=== PATIENT | female | born 1935 | race Caucasian/White ===

== ENCOUNTER → 2024-02-18 09:41 | Outpatient (REF) | payer MEDICARE, SELFPAY | LOC: RAD 09:41 | PROVIDERS: ATTENDING PHYSICIAN Internal Medicine Endocrinology, Diabetes & Metabolism; FAMILY PHYSICIAN Student in an Organized Health Care Education/Training Program | DX: E05.90 Thyrotoxicosis, unspecified without thyrotoxic crisis or storm (principal); E04.1 Nontoxic single thyroid nodule | CPT/HCPCS: 76536 ==

== ENCOUNTER 2024-03-12 18:25 | Inpatient (IN) | payer MEDICARE, SELFPAY ==
[2024-03-12] VITALS (11 sets, daily range): BP systolic 100–169; BP diastolic 60–116; BMI 33.7; BMI 33.2
--- NOTE | 2024-03-12 16:22 | ED.GENMED ---
History of Present Illness
General
Chief Complaint: Heart Rate Problem
Source: patient and family
Exam Limitations: none
Time Seen by Provider: 03/12/24 16:03
Travel History
Have you had any contact with someone who has COVID-19?: No
Do you have any symptoms of coronavirus? Fever > 100 degrees, chills, cough, shortness of breath, sore throat, loss of taste or smell, muscle aches, or headache?: No
History of Present Illness
History of Present Illness:
See MDM
Past History
Past History
ED Past Medical History: Arrthythmia (Atrial fib), HTN, Hypercholesterolemia and Other (Hyperthryoidism)
ED Past Surgical History: None
Social History
Tobacco: Non-smoker
Alcohol: None
Personal:
Living: alone
Phy Exam
Physical Exam
Physical Exam:
See MDM
Course
Orders/Labs/Results
Orders:
Orders
03/12/24 15:24
ECG [Electrocardiogram (*1)] Urgent
Reason for Study: Atrial Fibrillation
EKG- Treatment ONCE
03/12/24 16:19
CMP [Comprehensive Metabolic Panel] Urgent
Complete Blood Count/With Diff Urgent
Free T4 Urgent
Pro-BNP [NT-proBNP] Urgent
TSH Reflex To Free T4 Urgent
03/12/24 16:21
Diltiazem HCl [Cardizem] 20 mg IV NOW STA
Diltiazem HCl [Cardizem] 24 mg IV NOW STA
03/12/24 16:24
CR Chest Portable - 1 View Urgent
Comment:
Reason For Exam: SOB, chest pain
Reason Study Needs to be Portable: Patient Unstable
03/12/24 16:25
Diltiazem 125 mg/125 ml Nss [Cardizem] 125 mg in 125 ml IV NOW
Initial dose in mg/hr, then titrate:: 5
Titrate to keep:: Heart rate 80-100 bpm
Titrate by mg/hr:: 5 mg/hr
Frequency of titrations (minutes):: 15
Maximum dose in mg/hr:: 15
03/12/24 17:22
Furosemide [Lasix] 40 mg IV NOW STA
03/12/24 17:24
Consult Cardiology [CARDIOLOGY CONSULT] Routine
Consulting Provider: Davion Suarez
Was physician already notified: Yes
Abnormal Lab Results
03/12/24
16:19
MCH 31.4 H pg
(27.0-31.0)
RDW 15.4 H %
(11.5-14.5)
MPV 12.2 H fL
(7.4-10.4)
Absolute Monos (auto) 0.9 H 10^3/uL
(0.1-0.6)
Lymphocytes % 16.2 L %
(20.5-51.1)
Monocytes % 10.6 H %
(1.7-9.3)
Glucose 116 H mg/dl
(70-99)
Calcium 10.4 H mg/dl
(8.4-10.2)
TSH (Reflex) 0.03 L uIU/ml
(0.47-4.68)
03/12/24 16:19
03/12/24 16:19
Vital Signs
Initial and Last Documented VS:
Initial Vital Signs
Temp Pulse Resp BP Pulse Ox
97.6 F 134 16 159/102 92
03/12/24 15:40 03/12/24 15:40 03/12/24 15:40 03/12/24 15:40 03/12/24 15:40
Last Documented Vital Signs
Temp Pulse Resp BP Pulse Ox
97.6 F 124 16 169/108 92
03/12/24 15:40 03/12/24 16:35 03/12/24 15:40 03/12/24 16:35 03/12/24 15:40
Procedures
IV Access
Indication: RN unable to obtain and Physician skill needed
Performed by:: Toy Zamora DO
Site:: R arm
Gauge:: 18
Ultrasound Guidance: Yes
MDM/Problems Addressed
Differential Diagnosis Includes:
HPI and MDM Narrative:
88-year-old female presenting with A-fib for the past 3 days. She has a history of paroxysmal A-fib. She has failed multiple medicines in the past. Amiodarone was her most recent medicine which seemed to help the most. However, family indicating
that this caused hyperthyroidism. She has since been off amiodarone and has been on beta-blockers alone. The carbon sequestration plant operator recently increased the methimazole from 5 mg to 10 mg. Patient states compliance with eliquis
Given the history of failed multiple medications, we discussed cardioversion versus Cardizem drip. Patient has been cardioverted before and 1 right back and A-fib. Patient and family are more interested in Cardizem drip and admission to discuss
alternative treatment therapy with cardiology
Physical exam
General: Well appearing and non-toxic
HEENT: protecting airway
Neck: appears supple
CV: No evidence of cyanosis. Tachycardic and irregular
Resp: No accessory muscle use. Mild crackles at bases
Abd: Non-distended
Extremities: +2 pitting edema from knees to ankles bilateral
Neuro: alert
Psych: Normal affect
Skin: Intact
Problems Addressed including Acute and Chronic Conditions affecting care:
1. A-fib with RVR
Acuity: acute
Prognosis: unstable
Details: Patient requiring IV Cardizem bolus and Cardizem drip
2. Shortness of breath
Acuity: acute
Prognosis: stable
Details: Likely in setting of A-fib. Given crackles at bases, will obtain chest x-ray
Updates
Patient remains in A-fib while on Cardizem drip. BNP elevated but chest x-ray clear. Will give dose of Lasix
Differential Diagnosis (but not limited to): CHF exacerbation, hypothyroidism, A-fib
Testing considered: Troponin
Drug therapy (if applicable): OTC meds, please see d/c instruction regarding Rx drugs
Amount and/or Complexity of Data Reviewed
Clinical info obtained from: Patient
External data reviewed: N/A
Labs I independently reviewed (but not limited to): Elevated BNP
Radiology: X-ray independently reviewed: Checks x-ray appears clear
Pulse Ox: not hypoxic
EKG independently reviewed: A-fib, normal axis, no STEMI
Featheredge Machine Operator: A-fib with RVR
Critical Care: C the high probability of a clinically significant, sudden or life threatening deterioration of the cardiovascular system(s) required my full and direct attention, intervention and personal management. The aggregate critical care time
was 33 minutes. This time is in addition to time spent performing reported procedures but includes the following:
[x] Data Review and interpretation
[x] Patient assessment and monitoring of vital signs
[x] Documentation
[x] Medication orders and management
Risk of Complication:
Social Determinants of health: Good social support
Discussed with other providers: Hospitalist, technical publications manager
Escalation of Care includes Admit/Obs: Given persistent A-fib with symptoms, will admit
Occasional wrong word or 'sound a like' substitutions may have occurred due to the inherent limitations of voice recognition software. Read the chart carefully and recognize, using context, where substitutions have occurred.
*Critical Care Note
Total Time (30-74mins, 75-104mins- exclusive of procedures): 33 min
ED Attending Note
-
Portions of this chart may have been created with voice recognition software.� Occasional wrong word or��sound alike� substitutions may have occurred due to the inherent limitations of voice recognition software.
Discharge Plan
Departure
Patient Disposition: Admit
Date of Disposition: 03/12/24
Time of Disposition: 17:35
Admit to: Telemetry
Presentation/result/management discussed w/ accepting MD/DO: Hospitalist
Discharge Problem:
A-fib
Prescriptions:
No Action
Eliquis 5 MG tablet
5 mg PO BID Qty: 60 6RF
ezetimibe 10 MG tablet
10 mg PO DAILY
metoprolol succinate 50 mg Tablet Extended Release 24 Hr
50 mg PO BID Qty: 60 0RF
losartan 50 mg Tablet
50 mg PO DAILY
furosemide 40 mg Tablet
40 mg PO BID
calcium polycarbophil [FiberCon] 625 mg Tablet
1,250 mg PO DAILY
ku-jup-JW-Mk-Vg-rufhxcs-lutein 0.4-162-18 mg Tablet
1 tab PO DAILY
amlodipine 5 mg Tablet
5 mg PO BID Qty: 60 0RF
Rx Instructions:
New medication for hypertension
acetaminophen 325 mg Tablet
650 mg PO Q4HPRN PRN (Reason: Mild Pain / Temp > 101) Qty: 1 0RF
dextromethorphan-guaifenesin 10-100 mg/5 mL Syrup
10 ml PO Q4HPRN PRN (Reason: cough) Qty: 1 0RF
Rx Instructions:
OTC
albuterol sulfate 90 mcg/actuation Hfa Aerosol Inhaler
2 puff inhalation R Q4HPRN PRN (Reason: SOB) Qty: 1 0RF
Referrals:
Gerda Garcia MD [Family Provider] -
Interventions
Interventions:
*Risk Screen - Suicide Last Done: 03/12/24 15:40
*General Assessment Last Done: 03/12/24 15:40
*ED COVID-19 Vaccine History Last Done: 03/12/24 15:40
Discharge Date and Time
Print Language: URDU
[2024-03-12] MEDS: CARDIZEM 20 MG IV (16:35)
[2024-03-12] MEDS: CARDIZEM 125 IV (16:36)
[2024-03-12 16:39] LABS: % Basophils 0.6 % (0-2); % Eosinophils 3.7 % (0-6); % Immature Granulocytes 0.2 % (0-0.5); % Lymphocytes 16.2 % (20.5-51.1); % Monocytes 10.6 % (1.7-9.3); % Neutrophils 68.7 % (42.2-75.2); Absolute Basophils 0.1 10^3/uL (0-0.2); Absolute Eosinophils 0.3 10^3/uL (0-0.7); Absolute Lymphocytes 1.3 10^3/uL (1.2-3.4); Absolute Monocytes 0.9 10^3/uL (0.1-0.6); Absolute Neutrophils 5.6 10^3/uL (1.4-6.5); Hematocrit 42.5 % (37.0-47.0); Hemoglobin 14.1 g/dL (12.0-16.0); Mean Corp Hgb Conc. 33.2 g/dL (33.0-37.0); Mean Corpuscular Hgb 31.4 pg (27.0-31.0); Mean Corpuscular Volume 94.7 fL (81.0-99.0); Mean Platelet Volume 12.2 fL (7.4-10.4); Nucleated Red Blood Cells % 0 %; Platelet Count 269 10^3/uL (130-400); Red Blood Cell Count 4.49 10^6/uL (4.20-5.40); Red Cell Dist. Width 15.4 % (11.5-14.5); White Blood Cell Count 8.2 10^3/uL (4.8-10.8)
[2024-03-12 16:52] LABS: ALT (SGPT) 16 U/L (0-35); AST (SGOT) 28 U/L (14-36); Albumin 4.1 g/dl (3.5-5.0); Alkaline Phosphatase 99 U/L (38-126); Blood Urea Nitrogen 13 mg/dl (7-17); Calcium 10.4 mg/dl (8.4-10.2); Carbon Dioxide 29 mmol/L (22-30); Chloride 101 mmol/L (98-107); Estimated Creatinine Clearance 59 ml/min; Glucose 116 mg/dl (70-99); Potassium 3.9 mmol/L (3.5-5.1); Sodium 140 mmol/L (135-145); Total Bilirubin 1.1 mg/dl (0.2-1.3); Total Protein 6.8 g/dl (6.3-8.2); eGFR > 60.00
[2024-03-12 16:57] LABS: NT-proBNP 3530 pg/ml
[2024-03-12 17:29] LABS: TSH Reflex To Free T4 0.03 uIU/ml (0.47-4.68)
[2024-03-12] MEDS: LASIX 40 MG IV (17:54)
[2024-03-12 17:57] LABS: Free T4 2.24 ng/dl (0.78-2.19)
--- NOTE | 2024-03-12 18:13 | HPS.HSE ---
Addendum entered and electronically signed by Augustus Schmid MD 03/13/24 08:11:
88-year-old female with a past medical history of paroxysmal atrial fibrillation on Eliquis, CHF on lasix, hyperthyroidism on methimazole, hypertension, and hyperlipidemia presents with shortness of breath and palpitations for 4 days. She was found
to have rapid atrial fibrillation despite being on metoprolol succinate 50 mg twice a day, and be in acute heart failure with a preserved ejection fraction. She received Cardizem IV bolus and is currently on a drip.
Will continue her Cardizem drip, titrate as needed. Start metoprolol tartrate 50 mg every 6 hours. Hold losartan so we have enough room to go up on her Cardizem drip and metoprolol if needed. Continue Eliquis for anticoagulation. Give Lasix 40
mg IV daily for heart failure, trend creatinine, trend daily weights. Consult cardiology.
I have personally seen and examined the patient 03/12/2024, and agree with the plan of care as documented by BELEN Daniels
Advance care planning discussed, patient is a DNR.
All other issues as outlined by the advanced care practitioner.
Original Note:
Family Physician
-
Family Physician: Gerda Garcia MD
Chief Complaint
-
Rapid heart rate, shortness breath, lightheadedness
History of Present Illness
88-year-old female from home where she lives alone in a senior apartment who states she felt her heart racing with some shortness of breath and lightheadedness today. She has history of A-fib is on Eliquis and beta-norma. Her son-in-law who is a
primary care provider brought her to the ER for evaluation. She has been working with endocrinology for hyperthyroidism history of hyperthyroidism worsened with prior amiodarone. She currently had methimazole increased to 5 mg twice daily. She
had recent admission November 2023 with cardioversion for A-fib. Per her son-in-law she has never chemically converted in the past. She denies current fever, chills, recent illness, chest pain, headache, shortness of breath, cough, abdominal pain,
nausea, vomiting, diarrhea, urinary symptoms. She has past medical history of hypertension, HLD, chronic CHF preserved EF, hypothyroidism, chronic ambulatory dysfunction uses walker.
Medical History
Past Medical History
Past Medical History: Reports Other
Additional Past Medical History:
Paroxysmal Atrial Fibrillation
Hypertension
Dyslipidemia
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
Chronic HFpEF
GERD
Hyperthyroidism
Obesity
Hx influenza A
Past Surgical History: Reports Other (Multiple cardioversions last 30 November 2023)
Social History
Tobacco: Non-smoker
Alcohol: None
Drug: None
Personal: Single
Living: Alone (care home apartment)
Family History
Family History: Other (Mother age 89 natural causes, father age 70 natural causes patient reports they never went to the physician)
Allergies / Home Medications
Allergies reflects when Allergies were last updated in [employer].
Home Medications with original date entered in [employer]
Allergy/Medication List:
Allergies
Allergy/AdvReac Type Severity Reaction Status Date / Time
No Known Allergies Allergy Verified 12/01/23 20:33
Home Medications
apixaban 5 mg tablet (Eliquis) 5 mg PO BID ##60 05/23/19
ezetimibe 10 mg tablet 10 mg PO DAILY High Cholesterol 12/12/21
metoprolol succinate 50 mg tablet,extended release 24 hr 50 mg PO BID #60 tabs 03/06/23
calcium polycarbophil 625 mg tablet (FiberCon) 1,250 mg PO DAILY Constipation 12/02/23
furosemide 40 mg tablet 40 mg PO BID Fluid Retention/Swelling 12/02/23
losartan 50 mg tablet 50 mg PO DAILY Blood Pressure 12/02/23
tijdvtdy-ppm-IW 0.4 mg-calcium 162 mg-iron 18 om-sgrutou-oszwdq tablet 1 tab PO DAILY Supplement 12/02/23
acetaminophen 325 mg tablet 650 mg (2 x 325 mg) PO Q4HPRN PRN Mild Pain / Temp > 101 #1 tab 12/07/23
dextromethorphan-guaifenesin 10 mg-100 mg/5 mL oral syrup 10 ml PO Q4HPRN PRN cough #1 mL 12/07/23
methimazole 5 mg PO BID 03/12/24
Review of Systems
-
History Source: Patient and Family (Patient's daughter and son-in-law Dr. Bill Johnson at bedside)
A 12 point ROS was completed and negative except as noted: Yes
Constitutional: Denies Fever, Weight Loss or Fatigue
EENT: Denies Sore Throat or Runny Nose
Respiratory: Denies Cough or Trouble Breathing
Cardiac: Reports Palpitations; Denies Chest Pain, Diaphoresis or Syncope
Abdomen/GI: Denies Abdominal Pain, Nausea, Vomiting, Diarrhea or Constipated
: Denies Dysuria, Frequency, Flank Pain, Incontinence or Difficulty Voiding
Musculoskeletal: Reports Edema (Chronic peripheral edema +2); Denies Joint Pain
Skin: Denies Itching or Rash
Neurological: Denies Dizzy, Headache or Weakness
Endocrine: Reports No Symptoms
Hematologic/Lymphatic: Reports No Symptoms
Psych: Reports Calm
Physical Exam
Vital Signs
Vital Signs
Temp Pulse Resp BP Pulse Ox
97.6 F 114 25 143/77 92
03/12/24 15:40 03/12/24 17:54 03/12/24 17:45 03/12/24 17:54 03/12/24 17:30
Physical Exam
General: Comfortable, Conversant and Obese; No Pain, Fever or Chills
HEENT: NormoCephalic, Anicteric and Moist mucous membranes
Respiratory: Clear; No Wheezes, Rales or Rhonchi
Cardiac: S1/S2, Irregular Rhythm (A-fib heart rate 123 bpm) and Peripheral Edema (Chronic +2 bilateral lower extremities); No Murmur, Rub or Gallop
Breast: Deferred by me
GI: Soft, Non Tender, Non Distended, Normal Bowel Sounds and No Hepatosplenomegaly
Rectal: Deferred by Provider
Genito-urinary: Deferred by me
Musculoskeletal: No Clubbing, No Cyanosis, Edema, Left Lower Extremity (Chronic +2) and Edema, Right Lower Extremity (Chronic +2); No Edema, Left Upper Extremity or Edema, Right Upper Extremity
Skin: Warm and Dry; No Rash
Neuro: AO x 3, No Motor Deficits, Nonfocal/grossly intact, Cranial Nerves Intact and No Sensory Deficits; No Slurred Speech, Facial Droop or Tremors
Psych: Calm
Laboratory Results
-
03/12/24 16:19
03/12/24 16:19
Laboratory Results
Total Bilirubin 1.1 mg/dl (0.2-1.3) 03/12/24 16:19
AST 28 U/L (14-36) 03/12/24 16:19
ALT 16 U/L (0-35) 03/12/24 16:19
Alkaline Phosphatase 99 U/L (38-126) 03/12/24 16:19
Data Reviewed
-
Lab Data: Labs Reviewed by me
Impression/Plan
-
Impression/plan:
Admit to IMU
#A-fib with RVR/paroxysmal A-fib
#-History of hyperthyroidism on amiodarone
-History of multiple cardioversions last 30 November 2023
-IV Cardizem drip
-Continue ENVIRONMENTAL SERVICES LEAD Eliquis
-Consult [facility] cardiology
-Change metoprolol to succinate to metoprolol tartrate 50 mg every 6 hours
-Hold losartan 50 mg daily
EKG: Rapid A-fib at 142 bpm, QTc 590 MS
CXR: No acute cardiopulmonary process
# Acute on chronic heart failure preserved EF
#Chronic peripheral edema
I/O, daily weight
=-IV Lasix 40 mg daily, ENVIRONMENTAL SERVICES LEAD 40 mg p.o. twice daily
2D echo 03/02/2023: EF 65 to 70%, normal LVS LVSF, no wall abnormalities, mild LVH, diastolic function indeterminate due to A-fib, trace aortic regurg
#Hyperthyroidism
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
-Is being followed by endocrine
TSH 0.03, free T4 2.24
-Continue methimazole 5 mg twice daily
#HTN�benign
143/77
Continue IV Cardizem drip, metoprolol tartrate 50 mg every [address] of succinate
#HLD
-Continue Zetia 10 mg daily
#GERD
No PPI listed
#Arthritis unknown type
No meds listed
Other PMH
TANANA
Impaired vision
Influenza A
DVT prophylaxis
Continue ENVIRONMENTAL SERVICES LEAD Eliquis
DNR per patient with family at bedside
[2024-03-12] MEDS: LOPRESSOR 50 MG PO (18:57)
--- NOTE | 2024-03-12 19:04 | PHANOTE ---
03/12/2024, [employer] tech, spoke to pt. to confirm some of their meds.; used pharmacy fill data and [facility] records from 12/28/2023 to compile a list of pt.'s meds.; pt.'s daughter manages pt.'s meds. but I was unsuccessful in reaching her via phone.
[2024-03-12] MEDS: ELIQUIS 5 MG PO (21:26)
[2024-03-12] MEDS: TAPAZOLE 5 MG PO (21:26)
[2024-03-13] VITALS (14 sets, daily range): BP systolic 93–143; BP diastolic 58–101; BMI 33.1
--- NOTE | 2024-03-13 01:18 | PTCARENOTE ---
Patient received from ED via stretcher and was assisted to bed by staff. She was oriented to room and surroundings. She was received with Cardizem drip at 10mg/hr. Cardizem decreased to 5mg/hr for HR 80-90's. Tele a-fib with occasional PVC.
Breath sounds with scattered coarse breath sounds. Patient is mildly dyspneic on exertion. O2 at 2lpm 96%. Purewick with clear yellow urine. LE edema +2 with reddened lower extremity. Patient is currently sleeping quietly.
[2024-03-13 06:06] LABS: Blood Urea Nitrogen 13 mg/dl (7-17); Calcium 9.8 mg/dl (8.4-10.2); Carbon Dioxide 30 mmol/L (22-30); Chloride 101 mmol/L (98-107); Estimated Creatinine Clearance 59 ml/min; Glucose 96 mg/dl (70-99); HDL Cholesterol 31 mg/dl; LDL Cholesterol, Calculated 49 mg/dl; Magnesium 1.9 mg/dl (1.6-2.3); Potassium 3.4 mmol/L (3.5-5.1); Sodium 140 mmol/L (135-145); Total Cholesterol 94 mg/dl (50-199); Triglyceride 71 mg/dl (10-149); Very Low Density Lipoprotein 14 mg/dl (0-30); eGFR > 60.00
[2024-03-13] MEDS: LOPRESSOR PO ×3 (06:06→17:43)
[2024-03-13 06:33] LABS: TSH Reflex To Free T4 < 0.02 uIU/ml (0.47-4.68)
[2024-03-13] MEDS: TYLENOL 650 MG PO (07:34)
[2024-03-13] MEDS: DESENEX/MITRAZOL/ZEASORB 1 APPLIC TOPICAL ×2 (07:34→19:50)
[2024-03-13] MEDS: ZETIA 10 MG PO (07:35)
[2024-03-13] MEDS: FIBERCON 1250 MG PO (07:35)
[2024-03-13] MEDS: TAPAZOLE 5 MG PO ×2 (07:35→19:50)
[2024-03-13] MEDS: ELIQUIS 5 MG PO ×2 (07:35→19:51)
[2024-03-13] MEDS: LASIX 40 MG IV (07:37)
--- NOTE | 2024-03-13 07:39 | PTCARENOTE ---
patient c/o bilateral lower leg discomfort, chronic, Tylenol po given as ordered.
--- NOTE | 2024-03-13 07:58 | W.PN.HOSP.TC ---
Today's Communication/Plan
-
see bold
Assessment / Plan
Assessment / Plan
88-year-old female with a past medical history of paroxysmal atrial fibrillation on Eliquis, CHF on lasix, hyperthyroidism on methimazole, hypertension, and hyperlipidemia presents with shortness of breath and palpitations for 4 days. She was found
to have rapid atrial fibrillation despite being on metoprolol succinate 50 mg twice a day, and be in acute heart failure with a preserved ejection fraction. She received Cardizem IV bolus and is currently on a drip.
#Paroxysmal atrial fibrillation with rapid ventricular response
She has failed multiple cardioversions
Status post IV Cardizem bolus
Continue low-dose Cardizem drip, metoprolol tartrate 50 mg every 6 hours, Eliquis
Cardiology added Tikosyn today
#Acute hypoxic respiratory insufficiency
#Acute on chronic heart failure with a preserved ejection fraction
Was requiring 2 L of oxygen, now on room air
Patient on Lasix 40 mg p.o. twice daily at home
She is currently getting Lasix 40 mg IV daily, will increase to 40 mg IV twice daily
Trend daily weights, trend creatinine
#Hypokalemia
Replete, recheck a.m. potassium and magnesium levels
#Bilateral lower extremity lymphedema
Continue compression stockings
#Benign essential hypertension
Blood pressure on the soft side today, 107/77
Holding home losartan
#Hyperthyroidism
TSH less than 0.02, free T42.24
Patient's methimazole dose was recently increased to 5 mg bid, continue
#Osteoarthritis
Continue Tylenol as needed
DVT prophylaxis�Eliquis
DNR
Total time spent to see the patient on the floor, examine the patient, review data and lab results, discuss treatment plan with patient, nursing staff around 51 minutes.
Physical Exam
General: Obese, no acute distress
HEENT: Normocephalic, Atraumatic, EOMI, MMM
Respiratory: Bibasilar crackles
Cardiac: Normal S1/S2, tachycardic rate, irregular rhythm
GI: Soft, Nontender, Nondistended, Normal Bowel Sounds
Extremities: No Clubbing, Cyanosis
Severe bilateral lower extremity lymphedema
Neuro: Nonfocal/Grossly Intact
Psych: Calm, Cooperative
Anticipated Discharge: > 48 hours
Subjective/Interval History
-
Date of Service: March 13, 2024
Patient's breathing is improved. Continues to feel palpitations. No chest pain, no fever, no vomiting.
Objective Data
-
Labs:
Laboratory Results
03/13/24
04:29
Sodium 140
Potassium 3.4 L
Chloride 101
Carbon Dioxide 30
BUN 13
Creatinine 0.8
Glucose 96
Calcium 9.8
Vital Signs:
Vital Signs
Temp Pulse Resp BP Pulse Ox
97.9 F 126 20 136/98 96
03/13/24 07:12 03/13/24 07:37 03/13/24 07:12 03/13/24 07:37 03/13/24 07:12
I&O
03/12/24 03/13/24 03/14/24
06:59 06:59 06:59
Intake Total 240 / 240
Output Total 1000 / 1000 500 / 500
Balance -1000 / -1000 -260 / -260
--- NOTE | 2024-03-13 08:35 | W.CARD.TIKOS ---
Initiate Tikosyn
-
I verify that the patient has not taken any verapamil (Isoptin/Calan), ketoconazole (Nizoral), cimetidine (Tagamet), trimethoprim (Trimpex), trimethoprim/sulfamethoxazole (Bactrim), megesterol (Megace), prochlorperazine (Compazine),
hydrochlorothiazide (HCTZ), dolutegravir (Tivicay) or any Class I or Class III anti-arrhythmic within the last three days
AND
I verify that the patient has not taken amiodarone within the last THREE months, or that the patient's amiodarone plasma concentration is <0.3 mcg/mL.
Creatinine 0.8 mg/dL (0.6-1.0) 03/13/24 04:29
Estimated Creat Clear 59 ml/min 03/13/24 04:29
Does patient have a Ventricular Conduction Abnormality: No
I have assessed the baseline QTc interval (using QT for heart rate less than 60 bpm) and deemed the patient is appropriate for Dofetilide therapy. I understand that Tikosyn is contraindicated if the QTc is >440msec (500msec in patients with
ventricular conduction abnormalities).
Baseline QTc (in msec): <440m
QTc interval is greater than 440msec without conduction abnormality OR greater than 500msec with a conduction abnormality, but acceptable to proceed per Cardiology attending.
Hand measured QT interval <440msec on ECG
Reason for Administration with Prolonged QTc: Other Atrial Arrhythmia
Ordering Physician: Davion Suarez
--- NOTE | 2024-03-13 08:36 | CON.CAR ---
Consultation
Consultation Request
Date/Time Consultation Requested: March 13, 2024
Date/Time Consultation Performed: March 13, 2024
Requesting Provider: Hospitalist
Performing Provider: Daniela
Reason for Consultation: Symptomatic atrial fibrillation
Medical History
-
Chief Complaint: Symptomatic atrial fibrillation
History of Present Illness:
88-year-old female who sees Dr. Valera for symptomatic paroxysmal atrial fibrillation. Her son-in-law is Dr. Johnson one of our internists locally. She has a longstanding history of multiple medical issues including symptomatic paroxysmal atrial
fibrillation which is failed flecainide therapy, sotalol therapy, and amiodarone therapy at 200 mg twice daily due to amiodarone induced hyperthyroidism. Her methimazole was just increased to 5 mg twice daily and her amiodarone was withdrawn in
November 2023. In atrial fibrillation if she feels fatigue, palpitations, dyspnea on exertion and rapid rates. Her heart rates here on IV Cardizem plus significant metoprolol dosing are 100 to 150 bpm. She also appears volume overloaded and is
dyspneic. The dyspnea is been approximately 1 to 2 weeks. I have reviewed her prior records with normal ejection fraction.
Past Medical History
Past Medical History: Arrhythmias, CHF and Hyperthyroidism
Past Surgical History: None
Social History
Tobacco: Non-Smoker
Alcohol: None
Drug: None
Personal:
Living: Assisted Living
Employment: Not Employed
Family History
Family History: Reviewed & Not Pertinent
Allergies / Home Medications
Allergy/AdvReac Type Severity Reaction Status Date / Time
No Known Allergies Allergy Verified 12/01/23 20:33
�Medication �Instructions �Recorded �Confirmed �Type
apixaban 5 mg tablet (Eliquis) 5 mg PO BID ##60 05/23/19 03/12/24 Rx
ezetimibe 10 mg tablet 10 mg PO DAILY High Cholesterol 12/12/21 03/12/24 History
metoprolol succinate 50 mg 50 mg PO BID #60 tabs 03/06/23 03/12/24 Rx
tablet,extended release 24 hr
calcium polycarbophil 625 mg 625 mg PO BID Constipation 12/02/23 03/12/24 History
tablet (FiberCon)
furosemide 40 mg tablet 40 mg PO BID Fluid 12/02/23 03/12/24 History
Retention/Swelling
acetaminophen 650 mg 1,300 mg PO BIDPRN PRN mild pain 03/12/24 03/12/24 History
tablet,extended release (Tylenol 8
Hour)
losartan 100 mg tablet 100 mg PO DAILY 03/12/24 03/12/24 History
methimazole 5 mg tablet 10 mg PO DAILY 03/12/24 03/12/24 History
multivit with min-folic 1 tab PO DAILY 03/12/24 03/12/24 History
acid-lutein 500 mcg-250 mcg
chewable tablet
Review of Systems
-
All other systems: Negative unless noted
Respiratory: Trouble Breathing
Cardiac: Palpitations
Physical Exam
Vital Signs
Temp Pulse Resp BP Pulse Ox
97.9 F 128 20 107/77 96
03/13/24 07:12 03/13/24 08:30 03/13/24 07:12 03/13/24 08:00 03/13/24 07:12
Lab Results
03/12/24 16:19
03/13/24 04:29
Mhv-U-Khrktrmkhev Pept 3530 pg/ml 03/12/24 16:19
Physical Exam
General: Well Developed and Well Nourished
HEENT: Normocephalic and Anicteric
Respiratory: Crackles
Cardiac: Irregular Rhythm
Breast: Deferred by me
GI: Soft, Non Tender, Non Distended and Flat
Rectal: Deferred by Provider
Genito-urinary: Clear Urine
Musculoskeletal: No Clubbing and No Cyanosis
Skin: Warm and Dry
Neuro: Awake, Alert and Oriented
Hematologic/Lymphatic: No Lymphadenopathy
Psych: Calm
Impression / Plan
-
Impression:
Amiodarone induced hyperthyroidism
Recurrent atrial fibrillation with rapid ventricular response
Acute hypoxic respiratory failure-likely due to diastolic heart failure and elevated heart rate
Influenza A, positive as of 11/28/23
Abnormal thyroid function tests
Paroxysmal Afib with RVR
previously on Flecainide, stopped 11/2021
s/p inpatient sotalol loading 11/2021 then stopped 02/28/2023
Amiodarone therapy started 03/06/23Chronic OAC with Eliquis
Chronic HFpEF
HTN
Hyperlipidemia
GERD
B/L carotid artery disease, >70% L, 50-69% R
Obesity
Hypokalemia
Echo 05/23/19:�EF 60-65%. No RWMA. Aortic sclerosis without stenosis.
Echo 12/13/21: EF 60 to 65%, no regional wall motion abnormalities noted, mild concentric LVH, mild MR, mild TR, PAP 35 to 40 mmHg, no significant change compared to prior
Echo 03/02/23: EF 65 to 70%, no regional wall motion abnormalities noted, mild concentric LVH, MAC, aortic sclerosis, trace AR, no significant change compared to prior
Plan:
-I had discussions with Anay as well as her son Dr. Johnson and discussed a myriad of options including medical rate control which we are performing currently plus oral anticoagulation, further management of her hyperthyroidism which is exacerbating
her heart rates in atrial fibrillation, alternative antiarrhythmic therapy with dofetilide, pulmonary vein isolation therapy, and pace and ablate strategy. She tells me that she is more interested in medical therapy currently and would like to try
another antiarrhythmic drug prior to considering an ablation. I did discuss with her and her son-in-law that ablation typically is first-line or certainly can be considered after failure of 1 antiarrhythmic drug and currently she has failed 3.
Nonetheless we will initiate dofetilide to 50 mcg twice daily today and can consider cardioversion after dose 5 if she does not cardiovert herself. We will need to reach out to endocrinology Dr. Huber to discuss her methimazole as she currently
has a TSH less than 0.02 and I suspect her hyperthyroidism is still exacerbating her rates in atrial fibrillation and making them difficult to control medically. We will continue metoprolol 50 mg p.o. every 6 and can utilize IV Cardizem as
necessary. I also think she is in congestive heart failure and we will diurese her with IV Lasix. I did describe pulmonary vein isolation in detail to her and her son-in-law including risk benefits and treatment alternatives and could be
reasonably considered as an outpatient for quality of life improvement.
-Continue Eliquis
-Initiating dofetilide at 250 mics twice daily
-Continue p.o. metoprolol
-Can discontinue IV Cardizem today
-Follow thyroid studies and would reach out to her outpatient senior quality methods specialist to discuss intermediate term plan. Per her son-in-law she has follow-up thyroid studies in 6 weeks after her recent increase of methimazole to twice daily last week
-We discussed future outpatient consultation with EP to discuss possible ablation
Data Reviewed
-
EKG: Tracing Personally Visualized and interpreted and Report Reviewed by me
Radiology: Report Reviewed by me
Medical Tests (Nuc Med, Echo etc): Image Personally Visualized and interpreted
Labs: Labs Reviewed by me
Old Records: Reviewed
[2024-03-13] MEDS: TIKOSYN 250 MCG PO ×2 (09:28→21:02)
[2024-03-13] MEDS: CARDIZEM 125 IV (09:34)
--- NOTE | 2024-03-13 09:40 | PTCARENOTE ---
first dose of Tikosyn given as ordered, baseline QTC 495.
[2024-03-13] MEDS: LOPRESSOR 50 MG PO ×3 (10:02→23:11)
[2024-03-13] MEDS: KCL 40 MEQ PO ×2 (16:08→19:50)
--- NOTE | 2024-03-13 16:24 | PTCARENOTE ---
K 3.4 supplemented as ordered.
--- NOTE | 2024-03-13 21:33 | PTCARENOTE ---
Cardizem gtt d/c per order. Tikosyn dose #2 administered.
--- NOTE | 2024-03-13 23:47 | PTCARENOTE ---
EKG obtained post tikosyn dose #2. QTc 483.
[2024-03-14] VITALS (14 sets, daily range): BP systolic 104–151; BP diastolic 71–125; PULSE 108; O2SAT 120; BMI 33.5
[2024-03-14] MEDS: LOPRESSOR 50 MG PO ×4 (05:23→23:15)
[2024-03-14 06:13] LABS: Blood Urea Nitrogen 16 mg/dl (7-17); Calcium 10.3 mg/dl (8.4-10.2); Carbon Dioxide 26 mmol/L (22-30); Chloride 105 mmol/L (98-107); Estimated Creatinine Clearance 68 ml/min; Glucose 111 mg/dl (70-99); Magnesium 1.9 mg/dl (1.6-2.3); Potassium 4.3 mmol/L (3.5-5.1); Sodium 138 mmol/L (135-145); eGFR > 60.00
--- NOTE | 2024-03-14 08:00 | PTCARENOTE ---
report received from previous RN. pt resting in bed. AAOX3. standby assist OOB with walker. Afib on telemetry heart rate low 100s. pulses weakly palpable. +1 edema in lower extremities. pt on room air, sat 94%. lung sounds with fine crackles. active
bowel sounds, had bowel movement this morning. stress incontinence noted. pt updated on plan of care for the day. see worklist for full nursing assessment and interventions.
[2024-03-14] MEDS: DESENEX/MITRAZOL/ZEASORB 1 APPLIC TOPICAL ×2 (08:47→20:42)
[2024-03-14] MEDS: ELIQUIS 5 MG PO ×2 (08:47→20:42)
[2024-03-14] MEDS: TIKOSYN 250 MCG PO (08:48)
[2024-03-14] MEDS: LASIX 40 MG IV ×2 (08:48→15:53)
[2024-03-14] MEDS: FIBERCON 1250 MG PO (08:48)
[2024-03-14] MEDS: ZETIA 10 MG PO (08:48)
[2024-03-14] MEDS: TAPAZOLE 5 MG PO ×2 (08:48→20:42)
--- NOTE | 2024-03-14 09:28 | W.PN.HOSP.TC ---
Today's Communication/Plan
-
see A/P
Assessment / Plan
Assessment / Plan
88-year-old female with past medical history of paroxysmal atrial fibrillation on Eliquis, CHF on lasix, hyperthyroidism on methimazole, hypertension, and hyperlipidemia; p/w shortness of breath and palpitations for 4 days. She was found to have
rapid atrial fibrillation despite being on metoprolol succinate 50 mg twice a day, and was in acute heart failure with a preserved ejection fraction. She received Cardizem IV bolus and is currently on a drip.
A/P:
# Paroxysmal atrial fibrillation with rapid ventricular response
She has failed multiple cardioversions
Status post IV Cardizem bolus
Off Cardizem drip, on Tikosyn loading
On metoprolol tartrate 50 mg every 6 hours
Cont Eliquis
Cardiology on board
# Acute hypoxic respiratory insufficiency
# Acute on chronic heart failure with a preserved ejection fraction
Was requiring 2L oxygen, now on room air
Patient on Lasix 40 mg p.o. twice daily at home
currently on IV Lasix 40 mg BID
Trend daily weights, trend creatinine
# Hypokalemia
Repleted
# Bilateral lower extremity lymphedema
Continue compression stockings
# Benign essential hypertension
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
Monitor BP
# Hyperthyroidism
TSH less than 0.02, free T42.24
Patient's methimazole dose was recently increased to 5 mg bid, continue
# Osteoarthritis
Continue Tylenol as needed
DVT prophylaxis�Eliquis
DNR
TT SCARLETT (local PCP- Dr Johnson- to update)
Total time spent to see the patient on the floor, examine the patient, review data and lab results, discuss treatment plan with patient, nursing staff around 51 minutes.
Anticipated Discharge: > 48 hours
Subjective/Interval History
-
Date of Service: March 14, 2024
Objective Data
-
Labs:
Laboratory Results
03/14/24 03/14/24
02:10 05:29
Sodium Cancelled 138
Potassium Cancelled 4.3 D
Chloride Cancelled 105
Carbon Dioxide Cancelled 26
BUN Cancelled 16
Creatinine Cancelled 0.7
Glucose Cancelled 111 H
Calcium Cancelled 10.3 H
Vital Signs:
Vital Signs
Temp Pulse Resp BP Pulse Ox
36.6 C 123 16 118/88 95
03/14/24 09:14 03/14/24 09:14 03/14/24 09:14 03/14/24 08:48 03/14/24 09:14
I&O
03/13/24 03/14/24 03/15/24
06:59 06:59 06:59
Intake Total 480 / 480
Output Total 1000 / 1000 500 / 500
Balance -1000 / -1000 -20 / -20
Review of Systems
-
All other systems: Reviewed and negative
Physical Exam
-
General: Well Developed, Well Nourished, No Apparent Distress, Comfortable and Conversant
HEENT: Moist Mucous Membranes
Respiratory: Clear to Auscultation and Non Labored Respirations; Negative Accessory Resp Muscle Use
Cardiac: S1/S2, Irregular Rhythm and Tachycardic
GI: Soft and Nontender
Neuro: Awake and Alert
Psych: Calm and Intact Judgement/Insight
Data Reviewed
-
Labs: Labs Reviewed by me
--- NOTE | 2024-03-14 11:16 | W.PN.CARDCBS ---
Addendum entered and electronically signed by Lyly Clark MD 03/14/24 11:47:
I saw and examined the patient.
The Senior Living Advisor's note was reviewed and I agree with the note.
Comment: General: Well developed, well nourished in NAD.
Heart: Irregularly irregular
Lungs: Bilateral crackles at the bases
Neuro: Grossly nonfocal, awake, alert and oriented x3
Patient with increased heart rates overnight. Short of breath. Received Lasix and is diuresing well. Currently on the toilet. Still with some crackles
Continue to diuresis.
Continue dofetilide load.
If does not convert to sinus rhythm cardioversion in the morning. Discussed at length with the patient.
Follow EKGs. Telemetry stable..
Original Note:
Today's Communication / Plan
-
Cont Tikosyn load, ECG after 3rd dose that was given this AM is pending
CV in AM
Impression / Plan
-
PCP: Dr. Gerda Tang
Antenna Specialist: Dr. Valera
Impression:
Paroxysmal Afib with RVR, palpitations
Paroxysmal Afib with RVR
previously on Flecainide, stopped 11/2021
s/p inpatient sotalol loading 11/2021 then stopped 02/28/2023
Amiodarone therapy started 03/06/23 then stopped due to hyperthyroidism 11/2023
Chronic OAC with Eliquis
Acute on chronic HFpEF
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
HTN
Hyperlipidemia
GERD
B/L carotid artery disease, >70% L, 50-69% R
Obesity
Hypokalemia
Echo 05/23/19:�EF 60-65%. No RWMA. Aortic sclerosis without stenosis.
Echo 12/13/21: EF 60 to 65%, no regional wall motion abnormalities noted, mild concentric LVH, mild MR, mild TR, PAP 35 to 40 mmHg, no significant change compared to prior
Echo 03/02/23: EF 65 to 70%, no regional wall motion abnormalities noted, mild concentric LVH, MAC, aortic sclerosis, trace AR, no significant change compared to prior
Plan:
-Patient with symptomatic Afib in RVR on admission. Patient and family presented with options of alternative AAD or consideration for ablation and patient was interested in AAD as the next step, but not opposed to PVI in the future.
-Patient started on Tikosyn 250 mcg q 12 hours 03/13/24 AM. QTc 483 ms by ECG 2 hours after second dose that was given 03/13/24 PM. 3rd dose given 03/14/24 AM and ECG pending.
-Tele reviewed by me and patient remains in Afib. Will schedule for a CV in AM.
-Cont Eliquis 5 mg BID (age 88, Cre 0.7, wt 96.8 kg)
-Patient was taking Toprol XL 50 mg BID prior to admission, but was changed to Lopressor 50 mg q6 hours for rate control efforts this admission. Two doses missed for SBP less than 120
-Amiodarone stopped shortly after her admission for influenza in November due to hyperthyroid that Dr. Johnson had found on outpatient labs prior to that admission. Follow thyroid studies and would reach out to her outpatient obgyn specialist to discuss
intermediate term plan. Per her son-in-law she has follow-up thyroid studies in 6 weeks after her recent increase of methimazole to twice daily last week
-Weight is up 3 lbs overnight. Lasix IV ordered initially and then stopped, but restarted 03/14/24 AM by hospitalist attending. Patient reports increased urine output. Patient is at previous dry weight so will need to establish a new dry weight at
time of discharge.
HPI: I had discussions with Anay as well as her son Dr. Johnson and discussed a myriad of options including medical rate control which we are performing currently plus oral anticoagulation, further management of her hyperthyroidism which is
exacerbating her heart rates in atrial fibrillation, alternative antiarrhythmic therapy with dofetilide, pulmonary vein isolation therapy, and pace and ablate strategy. She tells me that she is more interested in medical therapy currently and would
like to try another antiarrhythmic drug prior to considering an ablation. I did discuss with her and her son-in-law that ablation typically is first-line or certainly can be considered after failure of 1 antiarrhythmic drug and currently she has
failed 3. Nonetheless we will initiate dofetilide to 50 mcg twice daily today and can consider cardioversion after dose 5 if she does not cardiovert herself. We will need to reach out to endocrinology Dr. Huber to discuss her methimazole as she
currently has a TSH less than 0.02 and I suspect her hyperthyroidism is still exacerbating her rates in atrial fibrillation and making them difficult to control medically. We will continue metoprolol 50 mg p.o. every 6 and can utilize IV Cardizem
as necessary. I also think she is in congestive heart failure and we will diurese her with IV Lasix. I did describe pulmonary vein isolation in detail to her and her son-in-law including risk benefits and treatment alternatives and could be
reasonably considered as an outpatient for quality of life improvement.
Progress Note - Antenna Specialist
Subjective
Date of Service: March 14, 2024
She feels well, working with PT and felt like her heart was racing
Objective
Labs:
03/12/24 16:19
03/14/24 05:29
Labs
Hgb 14.1 g/dL (12.0-16.0) 03/12/24 16:19
Hct 42.5 % (37.0-47.0) 03/12/24 16:19
Plt Count 269 10^3/uL (130-400) 03/12/24 16:19
Sodium 138 mmol/L (135-145) 03/14/24 05:29
Potassium 4.3 mmol/L (3.5-5.1) D 03/14/24 05:29
BUN 16 mg/dl (7-17) 03/14/24 05:29
Creatinine 0.7 mg/dL (0.6-1.0) 03/14/24 05:29
Glucose 111 mg/dl (70-99) H 03/14/24 05:29
Vital Signs and I&O:
Vital Signs
Temp Pulse Resp BP Pulse Ox
97.9 F 107 16 108/71 95
03/14/24 09:14 03/14/24 10:30 03/14/24 09:14 03/14/24 09:53 03/14/24 09:14
Vital Signs
Temp Pulse Resp BP Pulse Ox
97.9 F 107 16 108/71 95
03/14/24 09:14 03/14/24 10:30 03/14/24 09:14 03/14/24 09:53 03/14/24 09:14
Intake & Output
03/12/24 03/13/24 03/14/24 03/15/24
06:59 06:59 06:59 06:59
Intake Total 480 / 480
Output Total 1000 / 1000 500 / 500
Balance -1000 / -1000 -20 / -20
Physical Exam
Physical Exam
GEN: No distress, AAOx3
HEENT: EOMI, wearing glasses, MMM
LUNGS: No audible wheeze
CV: Irreg irreg
ABD: soft, BS+
EXT: Trace B/L LE edema
NEURO: Gross non-focal
SKIN: No rash
--- NOTE | 2024-03-14 13:09 | CM ---
spoke to pt and daughter in room. she is prev indep, lives in an indep apt at [facility]. she has cane and a walker she uses. she would like vn services after dc and asked for the same vn she had [facility]. she used [facility], referral faxed. plan
is for dc to home when medically stable and vn services
--- NOTE | 2024-03-14 13:14 | CM ---
priced dofetilide 125 mcg with pts perscrip plan - her copay is $46.47/month
[2024-03-14] MEDS: TIKOSYN 125 MCG PO (20:42)
[2024-03-15] VITALS (9 sets, daily range): BP systolic 105–150; BP diastolic 53–106; BMI 32.7
--- NOTE | 2024-03-15 00:15 | PTCARENOTE ---
Tikosyn dose #4 given. EKG obtained per protocol. QTC 382. Tele- Afib. Offers no other c/o at this time. Aware of NPO status after midnight for CV tomorrow.
[2024-03-15] MEDS: LOPRESSOR 50 MG PO ×2 (05:24→23:04)
[2024-03-15 06:05] LABS: Blood Urea Nitrogen 18 mg/dl (7-17); Calcium 10.2 mg/dl (8.4-10.2); Carbon Dioxide 26 mmol/L (22-30); Chloride 105 mmol/L (98-107); Estimated Creatinine Clearance 59 ml/min; Glucose 111 mg/dl (70-99); Magnesium 1.9 mg/dl (1.6-2.3); Potassium 4.1 mmol/L (3.5-5.1); Sodium 137 mmol/L (135-145); eGFR > 60.00
[2024-03-15] MEDS: TIKOSYN 125 MCG PO ×2 (07:54→19:34)
[2024-03-15] MEDS: TAPAZOLE 5 MG PO ×2 (07:54→19:34)
[2024-03-15] MEDS: ELIQUIS 5 MG PO ×2 (07:54→19:34)
[2024-03-15] MEDS: LASIX IV (07:54)
[2024-03-15] MEDS: FIBERCON 1250 MG PO (07:54)
[2024-03-15] MEDS: ZETIA 10 MG PO (07:54)
[2024-03-15] MEDS: DESENEX/MITRAZOL/ZEASORB 1 APPLIC TOPICAL ×2 (07:54→19:33)
[2024-03-15] MEDS: LASIX 40 MG IV ×2 (08:00→15:32)
--- NOTE | 2024-03-15 08:27 | W.PN.HOSP.TC ---
Today's Communication/Plan
-
see A/P
Assessment / Plan
Assessment / Plan
88-year-old female with past medical history of paroxysmal atrial fibrillation on Eliquis, CHF on lasix, hyperthyroidism on methimazole, hypertension, and hyperlipidemia; p/w shortness of breath and palpitations for 4 days. She was found to have
rapid atrial fibrillation despite being on metoprolol succinate 50 mg twice a day, and was in acute heart failure with a preserved ejection fraction. She received Cardizem IV bolus and is currently on a drip.
A/P:
# Paroxysmal atrial fibrillation with rapid ventricular response
She has failed multiple cardioversions
Status post IV Cardizem bolus
Off Cardizem drip, off Tikosyn loading
Cardiology planning for cardioversion 03/15
On metoprolol tartrate 50 mg every 6 hours
Cont Eliquis
Cardiology on board
# Acute hypoxic respiratory insufficiency
# Acute on chronic heart failure with a preserved ejection fraction
Was requiring 2L oxygen, now on room air
Patient on Lasix 40 mg p.o. twice daily at home; currently on IV Lasix 40 mg BID
Trend daily weights, trend creatinine
# Hypokalemia
Repleted
# Bilateral lower extremity lymphedema
Continue compression stockings
# Benign essential hypertension
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
Monitor BP
# Hyperthyroidism
TSH less than 0.02, free T42.24
Patient's methimazole dose was recently increased to 5 mg bid, continue
# Osteoarthritis
Continue Tylenol as needed
DVT prophylaxis�Eliquis
DNR
SCARLETT is local PCP- Dr Johnson. Sent TT to update him
Anticipated Discharge: 24 - 48 hours
Subjective/Interval History
-
Date of Service: March 15, 2024
Objective Data
-
Labs:
Laboratory Results
04/16/24
05:29
Sodium 137
Potassium 4.1
Chloride 105
Carbon Dioxide 26
BUN 18 H
Creatinine 0.8
Glucose 111 H
Calcium 10.2
Vital Signs:
Vital Signs
Temp Pulse Resp BP Pulse Ox
36.5 C 115 18 115/79 95
03/15/24 06:48 03/15/24 07:00 03/15/24 06:48 03/15/24 06:45 03/15/24 06:48
I&O
03/14/24 03/15/24 03/16/24
06:59 06:59 06:59
Intake Total 480 / 480 480 / 480
Output Total 500 / 500
Balance -20 / -20 480 / 480
Review of Systems
-
All other systems: Reviewed and negative
Physical Exam
-
General: Well Developed, Well Nourished, No Apparent Distress, Comfortable and Conversant
HEENT: Normocephalic and Atraumatic
Respiratory: Clear to Auscultation and Non Labored Respirations; Negative Accessory Resp Muscle Use
Cardiac: S1/S2, Irregular Rhythm and Tachycardic
GI: Soft and Nontender
Musculoskeletal: Edema, Right Lower Extrem and Edema, Left Lower Extrem
Neuro: Awake and Alert
Psych: Calm and Intact Judgement/Insight
Data Reviewed
-
Labs: Labs Reviewed by me
--- NOTE | 2024-03-15 10:45 | PTCARENOTE ---
off unit for cardioversion at this time. 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
--- NOTE | 2024-03-15 11:19 | W.PN.UPDATE ---
Update Note
Progress Note Update
Successful DCCV to NSR. No immediate complications. Yolis Johnson updated.
[2024-03-15] MEDS: LOPRESSOR PO ×2 (12:06→17:12)
[2024-03-15] MEDS: TYLENOL 650 MG PO ×2 (12:07→22:29)
--- NOTE | 2024-03-15 12:14 | PTCARENOTE ---
returned to rm 2257 s/p cardioversion. NSR/sinus chance w/ PVCs, HR 50s-60s. Updated on plan of care. Encouraged to continue to make needs known.
--- NOTE | 2024-03-15 14:56 | W.PN.CARDCBS ---
Addendum entered and electronically signed by Chrissy Appiah PA-C 03/15/24 15:40:
Added Tikosyn 125 mcg q 12 hours to med list and e-scribed. Appreciate help of CM on checking cost of Tikosyn.
Original Note:
Today's Communication / Plan
-
Tolerating Tikosyn
For cardioversion later today
Consider change to oral Lasix on 03/16
Impression / Plan
-
PCP: Dr. Gerda Tang
Wagon Person: Dr. Valera
Impression:
Paroxysmal Afib with RVR, palpitations
Paroxysmal Afib with RVR
previously on Flecainide, stopped 11/2021
s/p inpatient sotalol loading 11/2021 then stopped 02/28/2023
Amiodarone therapy started 03/06/23 then stopped due to hyperthyroidism 11/2023
Chronic OAC with Eliquis
Acute on chronic HFpEF
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
HTN
Hyperlipidemia
GERD
B/L carotid artery disease, >70% L, 50-69% R
Obesity
Echo 05/23/19:�EF 60-65%. No RWMA. Aortic sclerosis without stenosis.
Echo 12/13/21: EF 60 to 65%, no regional wall motion abnormalities noted, mild concentric LVH, mild MR, mild TR, PAP 35 to 40 mmHg, no significant change compared to prior
Echo 03/02/23: EF 65 to 70%, no regional wall motion abnormalities noted, mild concentric LVH, MAC, aortic sclerosis, trace AR, no significant change compared to prior
Plan:
Remains in rapid atrial fibrillation
Tolerating Tikosyn loading
She is to undergo cardioversion later today
Cont Eliquis 5 mg BID (age 88, Cre 0.7, wt 96.8 kg)
Amiodarone has been discontinued due to thyroid issues
Volume status is difficult to ascertain but weight is down 7 pounds since admission and will continue IV Lasix
Consider change to oral Lasix on 03/16
HPI: I had discussions with Anay as well as her son in law Dr. Johnson and discussed a myriad of options including medical rate control which we are performing currently plus oral anticoagulation, further management of her hyperthyroidism which is
exacerbating her heart rates in atrial fibrillation, alternative antiarrhythmic therapy with dofetilide, pulmonary vein isolation therapy, and pace and ablate strategy. She tells me that she is more interested in medical therapy currently and would
like to try another antiarrhythmic drug prior to considering an ablation. I did discuss with her and her son-in-law that ablation typically is first-line or certainly can be considered after failure of 1 antiarrhythmic drug and currently she has
failed 3. Nonetheless we will initiate dofetilide to 50 mcg twice daily today and can consider cardioversion after dose 5 if she does not cardiovert herself. We will need to reach out to endocrinology Dr. Huber to discuss her methimazole as she
currently has a TSH less than 0.02 and I suspect her hyperthyroidism is still exacerbating her rates in atrial fibrillation and making them difficult to control medically. We will continue metoprolol 50 mg p.o. every 6 and can utilize IV Cardizem
as necessary. I also think she is in congestive heart failure and we will diurese her with IV Lasix. I did describe pulmonary vein isolation in detail to her and her son-in-law including risk benefits and treatment alternatives and could be
reasonably considered as an outpatient for quality of life improvement.
Progress Note - Wagon Person
Subjective
Date of Service: March 15, 2024
No complaints
Objective
Labs:
03/12/24 16:19
03/15/24 05:29
Labs
Hgb 14.1 g/dL (12.0-16.0) 03/12/24 16:19
Hct 42.5 % (37.0-47.0) 03/12/24 16:19
Plt Count 269 10^3/uL (130-400) 03/12/24 16:19
Sodium 137 mmol/L (135-145) 03/15/24 05:29
Potassium 4.1 mmol/L (3.5-5.1) 03/15/24 05:29
BUN 18 mg/dl (7-17) H 03/15/24 05:29
Creatinine 0.8 mg/dL (0.6-1.0) 03/15/24 05:29
Glucose 111 mg/dl (70-99) H 03/15/24 05:29
Vital Signs and I&O:
Vital Signs
Temp Pulse Resp BP Pulse Ox
97.7 F 62 20 112/56 96
03/15/24 06:48 03/15/24 12:07 03/15/24 12:09 03/15/24 12:07 03/15/24 12:09
Vital Signs
Temp Pulse Resp BP Pulse Ox
97.7 F 62 20 112/56 96
03/15/24 06:48 03/15/24 12:07 03/15/24 12:09 03/15/24 12:07 03/15/24 12:09
Intake & Output
03/13/24 03/14/24 03/15/24 03/16/24
06:59 06:59 06:59 06:59
Intake Total 480 / 480 480 / 480
Output Total 1000 / 1000 500 / 500
Balance -1000 / -1000 -20 / -20 480 / 480
Physical Exam
Physical Exam
General: Well developed, well nourished in NAD.
Neck: Supple, no JVD, HJR, carotids +2 B/L, no bruits bilaterally.
Heart: Non displaced PMI, irregular, tachycardic, no murmurs, No S3, S4, no rubs.
Lungs: Scattered rhonchi at the bases
Extremities: No clubbing, cyanosis or edema bilaterally.
Neuro: Grossly nonfocal, awake, alert and oriented x3.
--- NOTE | 2024-03-15 21:07 | PTCARENOTE ---
Pt. continues in NSR with PVC's s/p CV, rate 60's-70's. Sitting OOB in chair all evening, ambulates with assist x 1 to use BR. No complaints of pain, pt. very pleasant.
[2024-03-16 03:07] VITALS: BP 121/74
[2024-03-16 05:01] VITALS: BMI 32.7
[2024-03-16 05:10] LABS: Blood Urea Nitrogen 25 mg/dl (7-17); Calcium 9.9 mg/dl (8.4-10.2); Carbon Dioxide 32 mmol/L (22-30); Chloride 102 mmol/L (98-107); Estimated Creatinine Clearance 47 ml/min; Glucose 97 mg/dl (70-99); Magnesium 1.9 mg/dl (1.6-2.3); Sodium 137 mmol/L (135-145); eGFR 54.53
--- NOTE | 2024-03-16 05:10 | DOWNTIME ---
There was a [employer] Downtime on 03/16/2024 from 0100 to 03/16/2024 at 0439. Downtime documentation of patient's care, including medication administrations, has been reconciled in the electronic record per guidelines. Refer to the
patient's paper chart under the miscellaneous tab to see printed paper medication records and downtime forms.
[2024-03-16] MEDS: LOPRESSOR PO (05:16)
[2024-03-16 06:53] VITALS: BP 138/64
[2024-03-16] MEDS: FIBERCON 1250 MG PO (08:00)
[2024-03-16] MEDS: ZETIA 10 MG PO (08:00)
[2024-03-16] MEDS: TIKOSYN 125 MCG PO (08:00)
[2024-03-16] MEDS: ELIQUIS 5 MG PO (08:00)
[2024-03-16] MEDS: TAPAZOLE 5 MG PO (08:00)
[2024-03-16] MEDS: DESENEX/MITRAZOL/ZEASORB 1 APPLIC TOPICAL (08:01)
[2024-03-16] MEDS: LASIX 40 MG IV (08:01)
--- NOTE | 2024-03-16 09:54 | W.PN.HOSP.TC ---
Addendum entered and electronically signed by Soumya Stark MD 03/16/24 14:57:
total DC time 35 min
Original Note:
Today's Communication/Plan
-
DC home today with
Assessment / Plan
Assessment / Plan
88-year-old female with past medical history of paroxysmal atrial fibrillation on Eliquis, CHF on lasix, hyperthyroidism on methimazole, hypertension, and hyperlipidemia; p/w shortness of breath and palpitations for 4 days. She was found to have
rapid atrial fibrillation despite being on metoprolol succinate 50 mg twice a day, and was in acute heart failure with a preserved ejection fraction. She received Cardizem IV bolus and is currently on a drip.
A/P:
# Paroxysmal atrial fibrillation with rapid ventricular response on admission
She has failed multiple cardioversions
Status post IV Cardizem bolus
Off Cardizem drip
s/p cardioversion 03/15 -> back to NSR
Card added Tikosyn 125 mcg q 12 hours
Cont metoprolol tartrate 50 mg every 6 hours
Cont Eliquis
Cardiology on board
# Acute hypoxic respiratory insufficiency
# Acute on chronic heart failure with a preserved ejection fraction
Was requiring 2L oxygen, now on room air
Patient on Lasix 40 mg p.o. twice daily at home; currently on IV Lasix 40 mg BID , to be transitioned to oral Lasix same dose upon discharge
Trend daily weights, trend creatinine
# Hypokalemia
Repleted
BMP in 1 week outpt with PCP
# Bilateral lower extremity lymphedema
Continue compression stockings
# Benign essential hypertension
[employer]OC[employer] ROOM CUSTODIAN home losartan on hold
Monitor BP
# Hyperthyroidism
TSH less than 0.02, free T42.24
Patient's methimazole dose was recently increased to 5 mg bid, continue
# Osteoarthritis
Continue Tylenol as needed
DVT prophylaxis�Eliquis
DNR
d/w daughter on the phone
D/w Card
Anticipated Discharge: Today
Subjective/Interval History
-
Date of Service: March 16, 2024
Objective Data
-
Labs:
Laboratory Results
03/16/24
03:20
Sodium 137
Potassium 4.0
Chloride 102
Carbon Dioxide 32 H
BUN 25 H
Creatinine 1.0
Glucose 97
Calcium 9.9
Vital Signs:
Vital Signs
Temp Pulse Resp BP Pulse Ox
36.6 C 62 18 138/64 96
03/16/24 07:00 03/16/24 08:01 03/16/24 07:00 03/16/24 08:01 03/16/24 07:00
I&O
03/15/24 03/16/24 03/17/24
06:59 06:59 06:59
Intake Total 480 / 480 480 / 480
Balance 480 / 480 480 / 480
Review of Systems
-
All other systems: Reviewed and negative
Physical Exam
-
General: Well Developed, Well Nourished, No Apparent Distress, Comfortable and Conversant
HEENT: Normocephalic and Atraumatic
Respiratory: Clear to Auscultation and Non Labored Respirations; Negative Accessory Resp Muscle Use
Cardiac: Regular Rhythm and S1/S2
GI: Soft and Nontender
Musculoskeletal: Edema, Right Lower Extrem (chronic) and Edema, Left Lower Extrem (chronic)
Neuro: Awake and Alert
Psych: Calm and Intact Judgement/Insight
Data Reviewed
-
Labs: Labs Reviewed by me
--- NOTE | 2024-03-16 11:10 | CM ---
Reviewed chart. Met with Mrs. Eli to review discharge plans. She states she is feeling well and maybe able to go home soon. She states prior to admission she resides in the [facility]. She
states she has her own apartment with an elevator. She states prior to admission she ambulates with a rolling walker. She states she has a HAZARDOUS MATERIALS ANALYST that comes in everyday for 2 hours. She helps her put on her compression stocking. We reviewed VNA
Services with [facility]. She is agreeable to the VNA Services. Script for three day supply of Dofetilide [facility] to [facility] to go home with her. Updated RN. She has a prescription plan and uses [facility]. Medical work-up in
progress. The discharge plan is to return home with [facility] when medically stable.
--- NOTE | 2024-03-16 11:10 | W.PN.CARDCBS ---
Addendum entered and electronically signed by David Valera MD 03/16/24 11:32:
I saw and examined the patient.
The REGISTERED NURSE FETAL or PA's note was reviewed and I agree with the note.
Comment: General: Well developed, well nourished in NAD.
Neck: Supple, no JVD, HJR, carotids +2 B/L, no bruits bilaterally.
Heart: Non displaced PMI, RRR, no murmurs, No S3, S4, no rubs.
Lungs: Clear to auscultation bilaterally, no wheeze, rhonchi, rubs bilaterally,
normal expiratory phase.
Extremities: No clubbing, cyanosis or edema bilaterally.
Neuro: Grossly nonfocal, awake, alert and oriented x3.
Stable cardiology status for discharge. Changed to Lasix 40 mg p.o. twice daily which is outpatient dosing. Continue Tikosyn. Remains in sinus rhythm. Follow-up arranged. Discussed with primary service
Original Note:
Today's Communication / Plan
-
Tikosyn e-scribed and 3 day DH Rx to be given to patient prior to d/c
Recommend Lasix 40 mg PO daily upon d/c
Impression / Plan
-
PCP: Dr. Gerda Tang
Associate Professor Of Medicine: Dr. Valera
Impression:
Paroxysmal Afib with RVR, palpitations
Paroxysmal Afib with RVR
previously on Flecainide, stopped 11/2021
s/p inpatient sotalol loading 11/2021 then stopped 02/28/2023
Amiodarone therapy started 03/06/23 then stopped due to hyperthyroidism 11/2023
Tikosyn loaded 02/2024, s/p successful CV 03/15/24
Chronic OAC with Eliquis
Acute on chronic HFpEF
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
HTN
Hyperlipidemia
GERD
B/L carotid artery disease, >70% L, 50-69% R
Obesity
Echo 05/23/19:�EF 60-65%. No RWMA. Aortic sclerosis without stenosis.
Echo 12/13/21: EF 60 to 65%, no regional wall motion abnormalities noted, mild concentric LVH, mild MR, mild TR, PAP 35 to 40 mmHg, no significant change compared to prior
Echo 03/02/23: EF 65 to 70%, no regional wall motion abnormalities noted, mild concentric LVH, MAC, aortic sclerosis, trace AR, no significant change compared to prior
Plan:
-Patient remains in SR after successful CV 03/16/24. Check ECG 03/16/24 for a final check of QTc prior to d/c.
-QTc stable with Tikosyn 125 mcg q 12 hours leading up to CV 03/15/24. E-scribed Tikosyn 125 mcg to her local pharmacy and sent 3 day Rx to pharmacy to be filled prior to d/c
-Patient started on Tikosyn 250 mcg and then dose lowered due to QTc prolongation.
-Cont Eliquis 5 mg BID (age 88, Cre 0.7, wt 96.8 kg)
-Patient was taking Toprol XL 50 mg BID prior to admission, but was changed to Lopressor 50 mg q6 hours for rate control efforts this admission. Changed back to Toprol XL at time of d/c
-Amiodarone stopped shortly after her admission for influenza in November due to hyperthyroid that Dr. Johnson had found on outpatient labs prior to that admission. Follow thyroid studies and would reach out to her outpatient title searcher to discuss
intermediate term plan. Per her son-in-law she has follow-up thyroid studies in 6 weeks after her recent increase of methimazole to twice daily last week
-Weight is down at least 4 lbs this admission with Lasix IV. Recommend Lasix 40 mg PO daily upon discharge. Weight on day of d/c 03/16/24 was 208 lbs
HPI: I had discussions with Anay as well as her son in law Dr. Johnson and discussed a myriad of options including medical rate control which we are performing currently plus oral anticoagulation, further management of her hyperthyroidism which is
exacerbating her heart rates in atrial fibrillation, alternative antiarrhythmic therapy with dofetilide, pulmonary vein isolation therapy, and pace and ablate strategy. She tells me that she is more interested in medical therapy currently and would
like to try another antiarrhythmic drug prior to considering an ablation. I did discuss with her and her son-in-law that ablation typically is first-line or certainly can be considered after failure of 1 antiarrhythmic drug and currently she has
failed 3. Nonetheless we will initiate dofetilide to 50 mcg twice daily today and can consider cardioversion after dose 5 if she does not cardiovert herself. We will need to reach out to endocrinology Dr. Huber to discuss her methimazole as she
currently has a TSH less than 0.02 and I suspect her hyperthyroidism is still exacerbating her rates in atrial fibrillation and making them difficult to control medically. We will continue metoprolol 50 mg p.o. every 6 and can utilize IV Cardizem
as necessary. I also think she is in congestive heart failure and we will diurese her with IV Lasix. I did describe pulmonary vein isolation in detail to her and her son-in-law including risk benefits and treatment alternatives and could be
reasonably considered as an outpatient for quality of life improvement.
Progress Note - Associate Professor Of Medicine
Subjective
Date of Service: March 16, 2024
No palpitations
Objective
Labs:
03/12/24 16:19
03/16/24 03:20
Labs
Hgb 14.1 g/dL (12.0-16.0) 03/12/24 16:19
Hct 42.5 % (37.0-47.0) 03/12/24 16:19
Plt Count 269 10^3/uL (130-400) 03/12/24 16:19
Sodium 137 mmol/L (135-145) 03/16/24 03:20
Potassium 4.0 mmol/L (3.5-5.1) 03/16/24 03:20
BUN 25 mg/dl (7-17) H 03/16/24 03:20
Creatinine 1.0 mg/dL (0.6-1.0) 03/16/24 03:20
Glucose 97 mg/dl (70-99) 03/16/24 03:20
Vital Signs and I&O:
Vital Signs
Temp Pulse Resp BP Pulse Ox
97.8 F 62 18 138/64 96
03/16/24 07:00 03/16/24 08:01 03/16/24 07:00 03/16/24 08:01 03/16/24 07:00
Vital Signs
Temp Pulse Resp BP Pulse Ox
97.8 F 62 18 138/64 96
03/16/24 07:00 03/16/24 08:01 03/16/24 07:00 03/16/24 08:01 03/16/24 07:00
Intake & Output
03/14/24 03/15/24 03/16/24 03/17/24
06:59 06:59 06:59 06:59
Intake Total 480 / 480 480 / 480 480 / 480
Output Total 500 / 500
Balance -20 / -20 480 / 480 480 / 480
Physical Exam
Physical Exam
GEN: AAOx3
HEENT: EOMI, wearing glasses, MMM
LUNGS: No audible wheeze
CV: Reg
ABD: soft, BS+
EXT: Trace B/L LE edema
NEURO: Gross non-focal
SKIN: No rash
--- NOTE | 2024-03-16 14:38 | W.DCSUMMARY ---
Discharge Summary
Discharge Data
Date of Admission: 03/12/24
Date of Discharge: 03/16/24
-
Pending Results: No
Hospital Course
Principal Diagnosis:
Paroxysmal atrial fibrillation with rapid ventricular response on admission
Acute hypoxic respiratory insufficiency due to acute on chronic heart failure with a preserved ejection fraction
Chronic Diagnoses:�
Paroxysmal atrial fibrillation on Eliquis
Chronic Bilateral lower extremity lymphedema
Benign essential hypertension
Hyperthyroidism, TSH less than 0.02, free T42.24. Patient's methimazole dose was recently increased to 5 mg bid, continue
Osteoarthritis
Consultations:�
Cardiology
Procedures:�
Cardioversion 03/15
Clinical course:�
This is a 88-year-old female with past medical history as stated above, who presented with shortness of breath and palpitations for 4 days. She was found to be in rapid atrial fibrillation despite being on metoprolol succinate 50 mg twice a day, and
was in acute heart failure with preserved ejection fraction.
Problem 1:
Paroxysmal atrial fibrillation with rapid ventricular response on admission.
She was initially treated with Cardizem drip which was subsequently discontinued.
She underwent cardioversion on 03/15 which converted her back to normal sinus rhythm.
Tikosyn 125 mcg Q12 H was added by cardiology, which she can continue going forward.
She can also continue with her prior to admission Toprol 50 mg twice daily.
Her Eliquis dose was not changed, continue at 5 mg twice daily.
Problem 2:
Acute hypoxic respiratory insufficiency due to acute on chronic heart failure with preserved ejection fraction.
She was requiring 2L oxygen support, which was subsequently weaned back to room air.
She was treated with IV Lasix 40 twice daily while in the hospital, and she can continue with oral Lasix 40 mg twice daily following discharge.
As for the rest of her medical problems, they were stable during her hospital stay.
Discharge Plan
-
Patient Disposition: Home with Home Care
Discharge Diagnosis/Procedures: Paroxysmal atrial fibrillation with rapid ventricular response on admission status post cardioversion; Acute hypoxic respiratory insufficiency (resolved) due to acute on chronic heart failure with preserved ejection
fraction
Condition: Fair
Diet: As tolerated, 2 Gram Sodium and Restrict fluids to 48 oz
Activity: As tolerated
Driving Restrictions: As prior to admission
Blood Work: BMP in 1 week with result to your PCP
TSH reflex FT4 with your PCP
Other Services: VN
Specialty Instructions: Weigh Daily- Call MD for wt gain/loss 3 lbs overnight/5 lbs in 1 week
Instructions: *[facility] Heart Failure Instructions
Referrals:
[facility] [Outside]
([facility]---> [facility]
FAX [phone])
Gedra Garcia MD [Family Provider] - in less than 1 week
Additional Discharge Medication Instructions: Tikosyn was added for better rate control.
Hold Losartan for now (Your BP has been stable)
Prescriptions:
New
dofetilide 125 mcg Capsule
125 mcg PO Q12 Qty: 60 11RF
Continued
Eliquis 5 MG tablet
5 mg PO BID Qty: 60 6RF
ezetimibe 10 MG tablet
10 mg PO DAILY
metoprolol succinate 50 mg Tablet Extended Release 24 Hr
50 mg PO BID Qty: 60 0RF
furosemide 40 mg Tablet
40 mg PO BID
FiberCon 625 mg Tablet
625 mg PO BID
methimazole 5 mg Tablet
10 mg PO DAILY
Rx Instructions:
PER DAUGHTER 10MG DAILY, PER SON-IN-LAW 5MG BID
acetaminophen [Tylenol 8 Hour] 650 mg Tablet Extended Release
1,300 mg PO BIDPRN PRN (Reason: mild pain)
aq-eqa-ietej acid-lutein 500-250 mcg Tablet,Chewable
1 tab PO DAILY
Discontinued
losartan 100 mg Tablet
100 mg PO DAILY
Discharge Orders:
Discharge Patient (As Directed); Ordered 03/16/24
Ordered By: Soumya Stark
Care Plan Goals
Care Plan Goals:
Problem: Readiness for enhanced knowledge related to diagnosis and treatment plan
Goal: Understand your diagnosis and treatment plan needs, including medications if applicable.
Instructions: Know your diagnosis, underlying causes and treatment plan options, including medications if applicable. Consult with your health care team to learn about your diagnosis and treatment plan, including medications if applicable.
Discharge Date and Time
Discharge Date/Time: 03/16/24 13:24
Print Language: INDONESIAN
== END 2024-03-16 13:24 | disposition home health service (06) | DRG 291 ==
LOC: IVU 18:25
PROVIDERS: Internal Medicine Cardiovascular Disease; ADMITTING PHYSICIAN Family Medicine; ATTENDING PHYSICIAN Internal Medicine; CONSULT PHYSICIAN Internal Medicine Cardiovascular Disease; EMERGENCY PHYSICIAN Student in an Organized Health Care Education/Training Program; FAMILY PHYSICIAN Student in an Organized Health Care Education/Training Program
PROC: 5A2204Z Restoration of Cardiac Rhythm, Single (ICD-10-PCS; 2024-03-15)
DX: I11.0 Hypertensive heart disease with heart failure (principal); I50.33 Acute on chronic diastolic (congestive) heart failure; I48.0 Paroxysmal atrial fibrillation; I89.0 Lymphedema, not elsewhere classified; E05.80 Other thyrotoxicosis without thyrotoxic crisis or storm; E87.6 Hypokalemia; T46.2X5A Adverse effect of other antidysrhythmic drugs, initial encounter; R09.02 Hypoxemia; E66.9 Obesity, unspecified; Z68.32 Body mass index [BMI] 32.0-32.9, adult; Z79.01 Long term (current) use of anticoagulants
CPT/HCPCS: 71045; 80048; 80053; 80061; 83735; 83880; 84439; 84443; 85025; 92960; 93005; 93306; 96365; 96366; 96375; 96376; 97162; 97166; 99291

== ENCOUNTER 2024-08-05 10:52 | Inpatient (IN) | payer MEDICARE, SELFPAY ==
[2024-08-05] VITALS (36 sets, daily range): BP systolic 89–188; BP diastolic 60–129; BMI 35.8; BMI 34.5
[2024-08-05] MEDS: CARDIZEM 20 MG IV (07:59)
[2024-08-05] MEDS: CARDIZEM 125 IV ×2 (08:00→16:22)
--- NOTE | 2024-08-05 08:01 | ED.GENMED ---
History of Present Illness
General
Chief Complaint: Breathing Problem
Source: patient
Exam Limitations: none
Time Seen by Provider: 08/05/24 07:48
History of Present Illness
History of Present Illness:
See MDM
Past History
Past History
ED Past Medical History: Arrthythmia (Atrial fib), HTN, Hypercholesterolemia and Other (Hyperthryoidism)
ED Past Surgical History: None
Social History
Tobacco: Non-smoker
Alcohol: None
Personal:
Living: alone
Phy Exam
Physical Exam
Physical Exam:
See MDM
Scores
Heart Failure Risk
Heart Failure Risk Score: Yes
History of Stroke or TIA: No
History of intubation for respiratory distress: No
Heart rate on ED arrival >/= 110: Yes
SaO2 <90% on arrival on room air: Yes
HR >/=110 during 3min walk test (or too ill to perform test): Yes
ECG has acute ischemic changes: No
Urea >/=12mmol/L (BUN 33.6mg/dL): No
Serum CO2>/=35mmol/L: No
Troponin I or T elevated to NE Level (0.4mg/dL): No
NT-proBNP >/=5,000ng/L (5,000pg/ml): No
HF Risk Score: 3
Admission Status: HIGH RISK 15.9% Consider SNF treatment or admission to hospital
Course
Orders/Labs/Results
Orders:
Orders
08/05/24 07:37
EKG [Electrocardiogram (*1)] Urgent
Reason for Study: Chest Pain
EKG- Treatment ONCE
08/05/24 07:55
CBC/With Diff [Complete Blood Count/With Diff] Urgent
Pro-BNP [NT-proBNP] Urgent
08/05/24 07:56
Diltiazem 125 mg/125 ml Nss [Cardizem] 125 mg in 125 ml IV NOW
Initial dose in mg/hr, then titrate:: 5
Titrate to keep:: Heart rate 80-100 bpm
Titrate by mg/hr:: 5 mg/hr
Frequency of titrations (minutes):: 15
Maximum dose in mg/hr:: 15
Diltiazem HCl [Cardizem] 20 mg IV NOW STA
08/05/24 07:57
Add On- LAB Urgent
Tests Added?: Magnesium
CR Chest - 2 Views Urgent
Comment:
Reason For Exam: SOB
08/05/24 08:00
CARDIOLOGY CONSULT Urgent
Consulting Provider: David Valera
Was physician already notified: Yes
08/05/24 08:35
Furosemide [Lasix] 40 mg IV NOW STA
08/05/24 08:39
Comprehensive Metabolic Panel Urgent
Magnesium Urgent
Comment: ADD ON
TSH Urgent
08/05/24 10:01
Azithromycin 500 mg/250 ml [Zithromax Infusion] 500 mg in 250 ml IV NOW
CefTRIAXone [Rocephin] 1,000 mg IV NOW STA
Abnormal Lab Results
08/05/24 08/05/24
07:55 08:39
MCV 100.7 H fL
(81.0-99.0)
MCH 33.0 H pg
(27.0-31.0)
MCHC 32.8 L g/dL
(33.0-37.0)
MPV 11.9 H fL
(7.4-10.4)
Absolute Neuts (auto) 7.6 H 10^3/uL
(1.4-6.5)
Absolute Monos (auto) 1.2 H 10^3/uL
(0.1-0.6)
Lymphocytes % 12.4 L %
(20.5-51.1)
Monocytes % 11.6 H %
(1.7-9.3)
BUN 23 H mg/dl
(7-17)
Glucose 136 H mg/dl
(70-99)
Total Protein 6.2 L g/dl
(6.3-8.2)
08/05/24 07:55
08/05/24 08:39
Vital Signs
Initial and Last Documented VS:
Initial Vital Signs
Temp Pulse Resp BP Pulse Ox
98.2 F 146 20 188/110 92
08/05/24 07:40 08/05/24 07:40 08/05/24 07:40 08/05/24 07:40 08/05/24 07:40
Last Documented Vital Signs
Temp Pulse Resp BP Pulse Ox
98.2 F 106 25 136/95 92
08/05/24 07:40 08/05/24 09:30 08/05/24 09:30 08/05/24 09:30 08/05/24 09:30
MDM/Problems Addressed
Differential Diagnosis Includes:
HPI and MDM Narrative:
89-year-old female presenting with shortness of breath and hypoxia. She complains of increased leg swelling as well. She does have a history of A-fib. She was on Amiodarone but could not tolerate it due to the side effect so it was discontinued.
She was cardioverted and then placed on Tikosyn. Over the past few weeks, she went back into an A-fib rhythm. Daughter at bedside states that the heart rate has been generally greater than 100 bpm. Based on the fact that she was still in A-fib
rhythm, her Tikosyn was discontinued since it was not working. Patient now short of breath and mildly hypoxic. On arrival, patient placed on supplemental oxygen.
Physical exam
General: Mildly uncomfortable
HEENT: protecting airway
Neck: appears supple
CV: No evidence of cyanosis
Resp: No accessory muscle use. Crackles at bases
Abd: Non-distended
Extremities: +3 pitting edema bilateral lower extremities
Neuro: alert
Psych: Normal affect
Skin: Intact
Problems Addressed including Acute and Chronic Conditions affecting care:
1. A-fib with RVR
Acuity: acute
Prognosis: unstable
Details: Given the weeks of uncontrolled A-fib, I am worried that synchronized cardioversion will not stick. Cardiology on board with plan for Cardizem drip.
2. Shortness of breath and hypoxia
Acuity: acute
Prognosis: unstable
Details: Likely in setting of CHF from uncontrolled A-fib. Will obtain chest x-ray. Patient placed on supplemental oxygen
Updates
Patient feeling better with heart rate control. Chest x-ray concerning for right lower lobe pneumonia. Will start antibiotics and admit
Differential Diagnosis (but not limited to): Pulmonary edema, A-fib, pneumonia
Testing considered: D-dimer but she is anticoagulated
Drug therapy (if applicable): OTC meds, please see d/c instruction regarding Rx drugs
Amount and/or Complexity of Data Reviewed
Clinical info obtained from: Patient
External data reviewed: N/A
Labs I independently reviewed (but not limited to): Elevated BNP
Radiology: X-ray independently reviewed: Chest x-ray concerning for pulm edema and right lower lobe pneumonia
Pulse Ox: hypoxic
EKG independently reviewed: A-fib with RVR, normal axis, no STEMI
Hydraulic Spinner: A-fib with RVR
Critical Care: the high probability of a clinically significant, sudden or life threatening deterioration of the cardiopulmonary system(s) required my full and direct attention, intervention and personal management. The aggregate critical care
time was 35 minutes. This time is in addition to time spent performing reported procedures but includes the following:
[x] Data Review and interpretation
[x] Patient assessment and monitoring of vital signs
[x] Documentation
[x] Medication orders and management
Risk of Complication:
Social Determinants of health: Good social support
Discussed with other providers: Hospitalist
Escalation of Care includes Admit/Obs: Given the uncontrolled A-fib with mild hypoxia and pneumonia, will continue Cardizem drip and start antibiotics and admit
Occasional wrong word or 'sound a like' substitutions may have occurred due to the inherent limitations of voice recognition software. Read the chart carefully and recognize, using context, where substitutions have occurred.
*Critical Care Note
Total Time (30-74mins, 75-104mins- exclusive of procedures): 35 min
ED Attending Note
-
Portions of this chart may have been created with voice recognition software.� Occasional wrong word or��sound alike� substitutions may have occurred due to the inherent limitations of voice recognition software.
Discharge Plan
Departure
Patient Disposition: Admit
Date of Disposition: 08/05/24
Time of Disposition: 10:05
Admit to: Telemetry
Presentation/result/management discussed w/ accepting MD/DO: Hospitalist
Discharge Problem:
PNA (pneumonia), Hypoxia, Atrial fibrillation with rapid ventricular response
Prescriptions:
No Action
Eliquis 5 MG tablet
5 mg PO BID Qty: 60 6RF
ezetimibe 10 MG tablet
10 mg PO DAILY
metoprolol succinate 50 mg Tablet Extended Release 24 Hr
50 mg PO BID Qty: 60 0RF
furosemide 40 mg Tablet
40 mg PO BID
FiberCon 625 mg Tablet
625 mg PO BID
methimazole 5 mg Tablet
10 mg PO DAILY
Rx Instructions:
PER DAUGHTER 10MG DAILY, PER SON-IN-LAW 5MG BID
acetaminophen [Tylenol 8 Hour] 650 mg Tablet Extended Release
1,300 mg PO BIDPRN PRN (Reason: mild pain)
dx-zio-vowgr acid-lutein 500-250 mcg Tablet,Chewable
1 tab PO DAILY
dofetilide 125 mcg Capsule
125 mcg PO Q12 Qty: 60 11RF
Referrals:
Gerda Garcia MD [Family Provider] -
Interventions
Interventions:
*Risk Screen - Suicide Last Done: 08/05/24 07:40
*General Assessment Last Done: 08/05/24 07:40
*Neglect/Abuse Screening Last Done: 08/05/24 07:40
ED- Cardiac Assessment Last Done: 08/05/24 08:00
ED- Pulmonary Assessment Last Done: 08/05/24 08:00
Discharge Date and Time
Print Language: EMIRATI
[2024-08-05 08:10] LABS: % Basophils 0.5 % (0-2); % Eosinophils 2.1 % (0-6); % Immature Granulocytes 0.3 % (0-0.5); % Lymphocytes 12.4 % (20.5-51.1); % Monocytes 11.6 % (1.7-9.3); % Neutrophils 73.1 % (42.2-75.2); Absolute Basophils 0.1 10^3/uL (0-0.2); Absolute Eosinophils 0.2 10^3/uL (0-0.7); Absolute Lymphocytes 1.3 10^3/uL (1.2-3.4); Absolute Monocytes 1.2 10^3/uL (0.1-0.6); Absolute Neutrophils 7.6 10^3/uL (1.4-6.5); Hematocrit 45.4 % (37.0-47.0); Hemoglobin 14.9 g/dL (12.0-16.0); Mean Corp Hgb Conc. 32.8 g/dL (33.0-37.0); Mean Corpuscular Volume 100.7 fL (81.0-99.0); Mean Platelet Volume 11.9 fL (7.4-10.4); Nucleated Red Blood Cells % 0 %; Platelet Count 237 10^3/uL (130-400); Red Blood Cell Count 4.51 10^6/uL (4.20-5.40); Red Cell Dist. Width 13.1 % (11.5-14.5); White Blood Cell Count 10.4 10^3/uL (4.8-10.8)
[2024-08-05 08:38] LABS: NT-proBNP 4700 pg/ml
[2024-08-05 09:02] LABS: ALT (SGPT) 16 U/L (0-35); AST (SGOT) 30 U/L (14-36); Albumin 3.9 g/dl (3.5-5.0); Alkaline Phosphatase 97 U/L (38-126); Blood Urea Nitrogen 23 mg/dl (7-17); Calcium 9.7 mg/dl (8.4-10.2); Carbon Dioxide 29 mmol/L (22-30); Chloride 104 mmol/L (98-107); Estimated Creatinine Clearance 48 ml/min; Glucose 136 mg/dl (70-99); Magnesium 1.9 mg/dl (1.6-2.3); Potassium 4.1 mmol/L (3.5-5.1); Sodium 143 mmol/L (135-145); Total Bilirubin 0.7 mg/dl (0.2-1.3); Total Protein 6.2 g/dl (6.3-8.2); eGFR 54.19
[2024-08-05] MEDS: LASIX 40 MG IV ×2 (09:02→16:01)
[2024-08-05 09:29] LABS: TSH 2.24 uIU/ml (0.47-4.68)
--- NOTE | 2024-08-05 10:47 | HPS.HSE ---
Family Physician
-
Family Physician: Gerda Garcia MD
Chief Complaint
-
Shortness of breath
History of Present Illness
Patient is a 89 years old female with history of paroxysmal A-fib, diastolic CHF, amiodarone induced hyperthyroidism, hypertension who lives independently in skilled nursing community presents in the company of daughter with gradually worsening of
shortness of breath, palpitations, occasional chest pain. While in the emergency room patient was found to be in atrial fibrillation with rapid ventricular rate at 120�140 as well as hypoxia. She was placed on IV Cardizem drip and given dose of IV
Lasix. Patient with history of paroxysmal A-fib with multiple cardioversions. Previously on amiodarone, had been discontinued due to amiodarone induced hyperthyroidism. Her last hospitalization back in February 2024 with cardioversion and following
Tikosyn initiation. Patient recently/2 weeks prior to admission was taken off Tikosyn. In addition her most recent TFTs were within normal limits and she was taken off methimazole as per suggestion of sign artist.
Medical History
Past Medical History
Past Medical History: Reports Arrhythmia (Paroxysmal A-fib), CHF (Preserved EF), GERD, HTN and Hyperthyroidism (Amiodarone induced)
Past Surgical History: Reports None
Social History
Tobacco: Non-smoker
Alcohol: None
Drug: None
Living: With Family
Family History
Family History: Not pertinent
Allergies / Home Medications
Allergies reflects when Allergies were last updated in [employer].
Home Medications with original date entered in [employer]
Allergy/Medication List:
Allergies
Allergy/AdvReac Type Severity Reaction Status Date / Time
No Known Allergies Allergy Verified 12/01/23 20:33
Home Medications
ezetimibe 10 mg tablet 10 mg PO DAILY High Cholesterol 12/12/21
furosemide 40 mg tablet 40 mg PO BID Fluid Retention/Swelling 12/02/23
acetaminophen 650 mg tablet,extended release (Tylenol 8 Hour) 1,300 mg PO BID pain 03/12/24
apixaban 5 mg tablet (Eliquis) 5 mg PO BID Blood Clot Prevention/Tx 08/05/24
docusate sodium 100 mg capsule (Colace) 100 mg PO BID constipation 08/05/24
nsydzuepuri-kmackjbem-Ro-amur 375 mg-150 mg-150 mg-125 mg tablet 1 tab PO DAILY supplement 08/05/24
metoprolol succinate 50 mg tablet,extended release 24 hr 50 mg PO BID Blood Pressure 08/05/24
therapeutic multivitamin 1 tab PO DAILY Supplement 08/05/24
Review of Systems
-
A 12 point ROS was completed and negative except as noted: Yes
Cardiac: Reports See HPI
Physical Exam
Vital Signs
Vital Signs
Temp Pulse Resp BP Pulse Ox
98.2 F 106 25 136/95 92
08/05/24 07:40 08/05/24 09:30 08/05/24 09:30 08/05/24 09:30 08/05/24 09:30
Physical Exam
General: Well Developed, Well Nourished and No Apparent Distress
HEENT: NormoCephalic, Moist mucous membranes and Atraumatic
Respiratory: Clear
Cardiac: S1/S2, Irregular Rhythm, Murmur and Other (Bilateral 2+ lower extremity pitting edema); No Rub
GI: Soft, Non Tender, Non Distended and Normal Bowel Sounds; No Organomegaly
Rectal: Deferred by Provider
Musculoskeletal: No Clubbing, No Cyanosis and No Edema
Skin: No Rash
Neuro: Awake, Alert, Oriented, AO x 3 and Nonfocal/grossly intact
Laboratory Results
-
08/05/24 07:55
08/05/24 08:39
Laboratory Results
Total Bilirubin 0.7 mg/dl (0.2-1.3) 08/05/24 08:39
AST 30 U/L (14-36) 09/06/24 08:39
ALT 16 U/L (0-35) 08/05/24 08:39
Alkaline Phosphatase 97 U/L (38-126) 08/05/24 08:39
Data Reviewed
-
Diagnostic Radiology: Report Reviewed by me
Lab Data: Labs Reviewed by me
Impression/Plan
-
IMPRESSION:
Atrial fibrillation with rapid ventricular response.
Acute CHF preserved EF in the settings of rapid ventricular rate
Acute pulmonary edema secondary to above.
Conditions prior to admission:
Paroxysmal A-fib status post cardioversion 03/23.
� Recently on Tikosyn discontinued 2 weeks prior to presenting
Anticoagulation with Eliquis.
CHF preserved EF.
�Echo 03/02/23: EF 65 to 70%, no regional wall motion abnormalities noted, mild concentric LVH, MAC, aortic sclerosis, trace AR, no significant change compared to prior
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
Essential hypertension
Dyslipidemia
GERD
Bilateral carotid artery stenosis greater than 70% left, 50 to 69% right
Obesity with BMI of 35
PLAN:
Atrial fibrillation with rapid ventricular response
Acute CHF preserved EF decompensation in the settings of rapid ventricular rates.
Recently on Tikosyn discontinued 2 weeks prior to presentation. History of amiodarone induced hyperthyroidism.
Initiated on IV Cardizem drip currently at 15 mg an hour
Continue preadmission metoprolol 50 mg twice daily, consider increase dose
? If makes sense to return to amiodarone with close monitoring of thyroid function.
? Digoxin
Continue anticoagulation with Eliquis
Acute CHF preserved EF with most likely asymmetric mostly on the right pulmonary edema
Weight is up, peripheral edema, elevated pro CHF BNP above the baseline.
Continue diuresis with Lasix 40 mg IV twice daily. Follow daily weight and BMP.
Most recent echo as above
Cardiology consultation.
Chest x-ray read with right lower lobe infiltrate
Patient is afebrile with occasional nonproductive cough, normal white count.
Less likely acute infection. Most likely asymmetric pulmonary edema
Status post ceftriaxone/Zithromax while in ED.
Check procalcitonin level.
Hold off on further antibiotics, monitoring closely for any signs of infection
History of amiodarone induced hyperthyroidism.
Most recent and today's TSH within normal limits.
Has been taken off methimazole 4 weeks prior to admission
[2024-08-05] MEDS: ZITHROMAX INFUSION 250 IV (11:16)
[2024-08-05] MEDS: ROCEPHIN 1000 MG IV (11:16)
--- NOTE | 2024-08-05 11:38 | CON.CAR ---
Addendum entered and electronically signed by David Valera MD 08/05/24 14:48:
I saw and examined the patient.
The FAN BALANCER or PA's note was reviewed and I agree with the note.
Comment: General: Well developed, well nourished in NAD.
Neck: Supple, no JVD, HJR, carotids +2 B/L, no bruits bilaterally.
Heart: Non displaced PMI, irregular, no murmurs, No S3, S4, no rubs.
Lungs: Scattered rhonchi
Abdomen: Normal bowel sounds, soft, non-tender, non-distended.
Extremities: No clubbing, cyanosis or edema bilaterally.
Neuro: Grossly nonfocal, awake, alert and oriented x3.
Anay has a h/o afib on chronic Eliquis and amiodarone, chronic diastolic chf, htn, hyperlipidemia. Amiodarone had been stopped as an outpt due to abnormal tft's. She presents with chest pain and shortness of breath. She is found to have acute
diastolic CHF. She received IV Lasix and feels better. Will treat with IV Lasix and assess response. Discussed with family and they want to try amiodarone again. We might consider cardioversion prior to discharge or as an outpatient but may have
high risk of recurrent A-fib. Heart rate control of A-fib with amiodarone will help as well. Will need to follow-up thyroid function test on amiodarone
Original Note:
Consultation
Consultation Request
Date/Time Consultation Performed: 08/05/24
Requesting Provider: Dr. Maradiaga
Performing Provider: Lyndsey Michael PA-C for Dr. Valera
Reason for Consultation: CHF, afib
Medical History
-
Chief Complaint: SOB
History of Present Illness:
Patient is an 89-year-old female with past medical history of paroxysmal atrial fibrillation on chronic Eliquis with history of failure with flecainide, sotalol. On amiodarone, she had amiodarone induced hyperthyroidism. She was followed by
endocrine on methimazole with improvement in her thyroid function, however was stopped 11/2023. She then was initiated on Tikosyn, however had breakthrough and this was discontinued 1-12/01 to 2 weeks ago. She reports yesterday she began to feel
chest pressure and shortness of breath which worsened throughout the course of the day. On arrival noted to be in atrial fibrillation with rapid response, and with evidence of acute CHF. Daughter present at bedside states patient has been
compliant with her Eliquis as well as her Lasix. She reports lower extremity edema approximately at baseline. proBNP 4700. Received IV Lasix in ER with good output thus far cardiology consulted for evaluation.
PMH:
Paroxysmal atrial fibrillation
History of failure with flecainide, sotalol and most recently Tikosyn
History of amiodarone induced hyperthyroidism
Chronic anticoagulation with Eliquis
Chronic heart failure with preserved EF
Hypertension
Hyperlipidemia
GERD
Bilateral carotid disease, greater than 70% left, 50 to 69% right
Obesity
Past Medical History
Past Medical History: Other (in HPI)
Social History
Tobacco: Non-Smoker
Alcohol: None
Drug: None
Personal:
Living: Assisted Living
Employment: Not Employed
Family History
Family History: Reviewed & Not Pertinent
Allergies / Home Medications
Allergy/AdvReac Type Severity Reaction Status Date / Time
No Known Allergies Allergy Verified 12/01/23 20:33
�Medication �Instructions �Recorded �Confirmed �Type
ezetimibe 10 mg tablet 10 mg PO DAILY High Cholesterol 12/12/21 08/05/24 History
furosemide 40 mg tablet 40 mg PO BID Fluid 12/02/23 08/05/24 History
Retention/Swelling
acetaminophen 650 mg 1,300 mg PO BID pain 03/12/24 08/05/24 History
tablet,extended release (Tylenol 8
Hour)
apixaban 5 mg tablet (Eliquis) 5 mg PO BID Blood Clot 08/05/24 08/05/24 History
Prevention/Tx
docusate sodium 100 mg capsule 100 mg PO BID constipation 08/05/24 08/05/24 History
(Colace)
rwtvmevihml-yeijtcczw-Dp-amur 375 1 tab PO DAILY supplement 08/05/24 08/05/24 History
mg-150 mg-150 mg-125 mg tablet
metoprolol succinate 50 mg 50 mg PO BID Blood Pressure 08/05/24 08/05/24 History
tablet,extended release 24 hr
therapeutic multivitamin 1 tab PO DAILY Supplement 08/05/24 08/05/24 History
Review of Systems
-
History Source: Patient and Family
All other systems: Negative unless noted
Physical Exam
Vital Signs
Temp Pulse Resp BP Pulse Ox
98.2 F 106 25 136/95 92
08/05/24 07:40 08/05/24 09:30 08/05/24 09:30 08/05/24 09:30 08/05/24 09:30
Lab Results
08/05/24 07:55
08/05/24 08:39
Cwj-Y-Crncxnbgyuc Pept 4700 pg/ml 08/05/24 07:55
Physical Exam
General: No Apparent Distress and Other (on supp O2)
HEENT: Normocephalic, Anicteric and Moist Mucous Membranes
Respiratory: Wheezes and Crackles
Cardiac: S1/S2 and Irregular Rhythm
GI: Soft, Non Tender, Non Distended and Normal Bowel Sounds
Musculoskeletal: No Clubbing, No Cyanosis and Edema (2+ of B/L LE)
Skin: Warm and Dry
Neuro: AO x 3
Impression / Plan
-
Primary Defective Cigarette Slitter: Dr. Valera
Assessment:
Presentation with SOB
Paroxysmal atrial fibrillation, now with RVR
History of failure with flecainide, sotalol and most recently Tikosyn
History of amiodarone induced hyperthyroidism
Chronic anticoagulation with Eliquis
Acute on chronic heart failure with preserved EF
Hypertension
Hyperlipidemia
GERD
Bilateral carotid disease, greater than 70% left, 50 to 69% right
Obesity
DNR CODE STATUS
ECHO 03/14/2024: Technically difficult study, preserved EF, mild concentric LVH, MAC, mitral sclerosis, mild MR, aortic sclerosis, no AR, mild TR, PAP 30 to 35 mmHg
Plan:
-Patient presents with shortness of breath and found to be in acute CHF and with A-fib with RVR after stopping Tikosyn approximately 2 weeks ago due to failure to maintain SR.
-proBNP elevated at 4700. Chest x-ray read as right lower lobe pneumonia, however appears most consistent with acute CHF. Pro-Reg pending. Continue IV Lasix. Responding well to diuretic in ER. Creatinine stable at 1.0. On p.o. Lasix 40 mg
twice daily prior to admission.
-Wean supplemental oxygen as able
-CHF education
-Recent echo from 02/2024 with results as above, likely will hold off on repeating at this time
-Discussed options for treatment of A-fib with patient and daughter at bedside. She is not interested in ablation/invasive procedures for treatment of her A-fib. Patient's daughter would prefer to have patient resume amiodarone, and will treat her
resultant hyperthyroidism. She was on methimazole followed by endocrine in the past. TSH normal at 2.24 on 08/05. Will discuss with EP when okay to resume amiodarone with recent Tikosyn. Currently on IV Cardizem at 15. On Toprol 50 mg twice daily
as an outpatient
-Continue Eliquis, no recent missed doses
-If does not convert to sinus rhythm, could consider for cardioversion prior to discharge
Data Reviewed
-
EKG: Tracing Personally Visualized and interpreted
Radiology: Report Reviewed by me
Medical Tests (Nuc Med, Echo etc): Report Reviewed by me
Labs: Labs Reviewed by me
Old Records: Reviewed
--- NOTE | 2024-08-05 16:47 | PTCARENOTE ---
Received pt from ER, Pt awake, alert and oriented x3. Has b/l hearing aides. Pt has no c/o pain, 95% on 2L. Pt Afib on tele, rates 110s-140s. Received on cardizem gtt @ 10ml/hr spoke with cards, with elevated rates increased to 15ml/hr per orders.
Other VSS. Pt oriented to room, call majano within reach, family at bedside, updated on POC. Plan of care continues.
[2024-08-05] MEDS: TYLENOL 650 MG PO ×2 (17:06→23:42)
[2024-08-05 19:07] LABS: Procalcitonin < 0.05 ng/ml (0.0-0.25)
[2024-08-05] MEDS: PACERONE 200 MG PO (20:38)
[2024-08-05] MEDS: ELIQUIS 5 MG PO (20:39)
[2024-08-05] MEDS: TOPROL XL 50 MG PO (20:39)
[2024-08-05] MEDS: COLACE 100 MG PO (20:39)
[2024-08-05] MEDS: DESENEX/MITRAZOL/ZEASORB 1 APPLIC TOPICAL (20:40)
[2024-08-06] MEDS: CARDIZEM 125 IV ×2 (00:48→09:16)
[2024-08-06 03:41] VITALS: BP 123/66
[2024-08-06] MEDS: TYLENOL 650 MG PO ×3 (05:35→17:49)
[2024-08-06 05:42] LABS: % Basophils 0.6 % (0-2); % Eosinophils 4.4 % (0-6); % Immature Granulocytes 0.3 % (0-0.5); % Lymphocytes 19.7 % (20.5-51.1); % Monocytes 14.8 % (1.7-9.3); % Neutrophils 60.2 % (42.2-75.2); Absolute Eosinophils 0.3 10^3/uL (0-0.7); Absolute Lymphocytes 1.2 10^3/uL (1.2-3.4); Absolute Monocytes 0.9 10^3/uL (0.1-0.6); Absolute Neutrophils 3.8 10^3/uL (1.4-6.5); Hematocrit 39.4 % (37.0-47.0); Hemoglobin 12.9 g/dL (12.0-16.0); Mean Corp Hgb Conc. 32.7 g/dL (33.0-37.0); Mean Corpuscular Volume 100.8 fL (81.0-99.0); Mean Platelet Volume 12.2 fL (7.4-10.4); Nucleated Red Blood Cells % 0 %; Platelet Count 195 10^3/uL (130-400); Red Blood Cell Count 3.91 10^6/uL (4.20-5.40); White Blood Cell Count 6.3 10^3/uL (4.8-10.8)
[2024-08-06 05:52] LABS: Blood Urea Nitrogen 19 mg/dl (7-17); Calcium 9.4 mg/dl (8.4-10.2); Carbon Dioxide 29 mmol/L (22-30); Chloride 104 mmol/L (98-107); Estimated Creatinine Clearance 47 ml/min; Glucose 97 mg/dl (70-99); Potassium 3.9 mmol/L (3.5-5.1); Sodium 142 mmol/L (135-145); eGFR 54.19
[2024-08-06 06:00] VITALS: BMI 34.6
[2024-08-06 07:20] VITALS: BP 125/78
[2024-08-06] MEDS: DESENEX/MITRAZOL/ZEASORB 1 APPLIC TOPICAL ×2 (08:13→21:49)
[2024-08-06] MEDS: LASIX 40 MG IV ×2 (08:13→15:39)
[2024-08-06] MEDS: THERAGRAN 1 TABLET PO (08:14)
[2024-08-06] MEDS: PACERONE 200 MG PO ×2 (08:15→21:48)
[2024-08-06] MEDS: COLACE 100 MG PO ×2 (08:15→21:49)
[2024-08-06] MEDS: ZETIA 10 MG PO (08:15)
[2024-08-06] MEDS: TOPROL XL 50 MG PO ×2 (08:16→21:48)
[2024-08-06] MEDS: ELIQUIS 5 MG PO ×2 (08:16→21:48)
--- NOTE | 2024-08-06 09:19 | W.PN.HOSP.TC ---
Today's Communication/Plan
-
c/w Lasix
Start oral Cardizem to wean off the drip
Wean off nasal O2 if possible
Eventual PT/OT
Assessment / Plan
Assessment / Plan
Physical Exam
General: Comfortable, on nasal O2, No Apparent Distress
HEENT: Normocephalic, Moist mucous membranes and Atraumatic
Respiratory: bilateral crackles , not severe
Cardiac: S1/S2, Irregular Rhythm, Murmur and Other (Bilateral 2+ lower extremity pitting edema); No Rub
GI: Soft, Non Tender, Non Distended and Normal Bowel Sounds; No Organomegaly
Rectal: Deferred by Provider
Musculoskeletal: No Clubbing, No Cyanosis and No Edema
Skin: No Rash
Neuro: Awake, Alert, Oriented, AO x 3 and Nonfocal/grossly intact
Psych: calm
# Atrial fibrillation with rapid ventricular response.
Paroxysmal A-fib status post cardioversion 03/23.
� Recently on Tikosyn discontinued 2 weeks prior to presenting
Her heart rate is better controlled, will wean off Cardizem gtt, lower to 5 mg/ hour then stop
Start on oral Cardizem , short acting for now then hopefully to long acting to know exact dosage
C/w Amiodarone, c/w BB
C/W Eliquis
# Acute CHF preserved EF in the settings of rapid ventricular rate
Acute pulmonary edema secondary to above.
Better today, she lost weight , 3 Kg
She reports feeling less sob
Continue diuresis with Lasix 40 mg IV twice daily.
Most recent echo 02/2024 showed normal LVEF, LVH, mild MR, Mild TR.
Cardiology input appreciated.
#Essential hypertension
#Dyslipidemia
#GERD
#Bilateral carotid artery stenosis greater than 70% left, 50 to 69% right
#Obesity with BMI of 35
# History of amiodarone induced hyperthyroidism.
Most recent and today's TSH within normal limits.
Has been taken off methimazole 4 weeks prior to admission
Total time spent to see the patient, examine the patient on the floor, review data and lab results, discuss the treatment plan with the patient, nursing staff around 55 minutes
Anticipated Discharge: > 48 hours
Subjective/Interval History
-
Date of Service: August 06, 2024
She feels better, less sob
No chest pain
Objective Data
-
Labs:
Laboratory Results
08/06/24
04:50
WBC 6.3
Hgb 12.9
Hct 39.4
Plt Count 195
Sodium 142
Potassium 3.9
Chloride 104
Carbon Dioxide 29
BUN 19 H
Creatinine 1.0
Glucose 97
Calcium 9.4
Vital Signs:
Vital Signs
Temp Pulse Resp BP Pulse Ox
97.5 F 124 18 125/78 96
08/06/24 07:20 08/06/24 07:20 08/06/24 07:20 08/06/24 07:20 08/06/24 07:20
I&O
08/05/24 08/06/24 08/07/24
06:59 06:59 06:59
Output Total 1600 / 1600
Balance -1600 / -1600
[2024-08-06] MEDS: CARDIZEM 60 MG PO ×4 (10:05→21:49)
--- NOTE | 2024-08-06 10:55 | W.PN.CARDCBS ---
Addendum entered and electronically signed by David Valera MD 08/06/24 12:56:
I saw and examined the patient.
The PLAIN GOODS HEMMER or PA's note was reviewed and I agree with the note.
Comment: General: Well developed, well nourished in NAD.
Neck: Supple, no JVD, HJR, carotids +2 B/L, no bruits bilaterally.
Heart: Non displaced PMI, irregular, no murmurs, No S3, S4, no rubs.
Lungs: Scattered rhonchi
Extremities: No clubbing, cyanosis or edema bilaterally.
Neuro: Grossly nonfocal, awake, alert and oriented x3.
She feels better. She remains on low-dose oxygen of approximately 1 L. Rate control in A-fib is reasonable. Will discontinue IV Cardizem and continue p.o. amiodarone. She will need close follow-up of thyroid function test on amiodarone.
Discussed with daughter in detail. Might consider cardioversion prior to discharge. Current weight is 220 pounds but is a bed scale. Of note her weight was 208 pounds on discharge in February 2024 but her daughter feels she has been eating much
more. Will ask for standing scale weight going forward. Will continue IV Lasix to hopefully get her off oxygen.
Original Note:
Today's Communication / Plan
-
Continue IV Lasix BID, if without good response consider increasing dose
wean off IV cardizem. continue po amiodarone 200mg BID, toprol. currently on po cardizem however may not need as loaded with amio
wean supp O2
Impression / Plan
-
Primary Strap Machine Operator Automatic: Dr. Valera
Assessment:
Presentation with SOB
Paroxysmal atrial fibrillation, now with RVR
History of failure with flecainide, sotalol and most recently Tikosyn
History of amiodarone induced hyperthyroidism
Chronic anticoagulation with Eliquis
Acute on chronic heart failure with preserved EF
Hypertension
Hyperlipidemia
GERD
Bilateral carotid disease, greater than 70% left, 50 to 69% right
Obesity
DNR CODE STATUS
ECHO 03/14/2024: Technically difficult study, preserved EF, mild concentric LVH, MAC, mitral sclerosis, mild MR, aortic sclerosis, no AR, mild TR, PAP 30 to 35 mmHg
Plan:
-Reports improving from admission
-Continue IV Lasix 40 mg twice daily, consider increasing dose if without significant urine output. Creatinine stable. was on po lasix 40mg BID prior to admission
-wean supp O2 as able
-HRs improving with restarting amiodarone, continue 200mg BID. QTc stable by EKG 08/06. She has history of amiodarone induced hyperthyroidism in the past, however after discussion with patient and daughter at bedside 08/05, they prefer to continue with
amiodarone and treat her resultant hyperthyroidism. She was previously on methimazole followed by endocrine. TSH normal on 08/05 she is not interested in ablation/invasive procedures for treatment of her A-fib. wean off IV cardizem. po cardizem
short acting started by hospitalist, however may not require as continue with amio loading. continue OP toprol
-Continue Eliquis, no recent missed doses
-If does not convert to sinus rhythm, could consider for cardioversion prior to discharge
-Recent echo from 02/2024 with results as above, likely will hold off on repeating at this time
-d/w nursing
Progress Note - Strap Machine Operator Automatic
Subjective
Date of Service: August 06, 2024
Reports improvement from admission
Objective
Labs:
08/06/24 04:50
08/06/24 04:50
Labs
Hgb 12.9 g/dL (12.0-16.0) 08/06/24 04:50
Hct 39.4 % (37.0-47.0) 08/06/24 04:50
Plt Count 195 10^3/uL (130-400) 08/06/24 04:50
Sodium 142 mmol/L (135-145) 08/06/24 04:50
Potassium 3.9 mmol/L (3.5-5.1) 08/06/24 04:50
BUN 19 mg/dl (7-17) H 08/06/24 04:50
Creatinine 1.0 mg/dL (0.6-1.0) 08/06/24 04:50
Glucose 97 mg/dl (70-99) 08/06/24 04:50
Vital Signs and I&O:
Vital Signs
Temp Pulse Resp BP Pulse Ox
97.5 F 94 18 113/56 96
08/06/24 07:20 08/06/24 10:05 08/06/24 07:20 08/06/24 10:05 08/06/24 07:20
Vital Signs
Temp Pulse Resp BP Pulse Ox
97.5 F 94 18 113/56 96
08/06/24 07:20 08/06/24 10:05 08/06/24 07:20 08/06/24 10:05 08/06/24 07:20
Intake & Output
08/04/24 08/05/24 08/06/24 08/07/24
07:59 07:59 07:59 07:59
Output Total 1600 / 1600
Balance -1600 / -1600
Physical Exam
Physical Exam
GEN: No distress, awake, alert, oriented x3. on supplemental oxygen
HEENT: supple, anicteric, mmm, eomi
LUNGS: Crackles bilaterally, no wheezes
CV: Irreg, S1/S2, no murmur
ABD: soft, BS+, NT/ND
EXT: No cyanosis, clubbing. 2+ edema of bilateral lower extremity
NEURO: Gross non-focal
SKIN: Warm, pink, dry. No rash
[2024-08-06 11:05] VITALS: BP 122/71
--- NOTE | 2024-08-06 14:56 | CM ---
Met with patient who lives in independent living in [facility]. There are not steps to enter her apartment. She states she has many walkers and cane. She has rollator, shower seat, shower rails, toilet rails, RTS.
She has someone clean for her.
She uses [facility] to take her weight to manage her CHF.
Her dgtr lives nearby.
PCP Dr. Gerda Garcia
Pharmacy: [facility] on [address]
Patient has [facility] in past for PT and OT and would like them back. Referral for [facility] made in care port.
Please fax discharge instruction to [facility] (formerly [facility]) at [phone]
PLAN: home with [facility].
[2024-08-06 15:15] VITALS: BP 119/70
[2024-08-06 19:52] VITALS: BP 121/71
[2024-08-06 23:56] VITALS: BP 136/83
[2024-08-07] VITALS (7 sets, daily range): BP systolic 120–145; BP diastolic 64–88; PULSE 108; O2SAT 97; BMI 34.9
[2024-08-07] MEDS: TYLENOL PO (00:15)
[2024-08-07] MEDS: TYLENOL 650 MG PO (04:04)
[2024-08-07 07:26] LABS: Blood Urea Nitrogen 21 mg/dl (7-17); Calcium 9.9 mg/dl (8.4-10.2); Carbon Dioxide 28 mmol/L (22-30); Chloride 104 mmol/L (98-107); Estimated Creatinine Clearance 47 ml/min; Glucose 107 mg/dl (70-99); Sodium 142 mmol/L (135-145); eGFR 54.19
--- NOTE | 2024-08-07 09:03 | W.PN.HOSP.TC ---
Today's Communication/Plan
-
Failed O2 weaning this morning
Increased Lasix dose,
Add prophylactic potassium
c/w Cardizem , BB, amiodarone
Plan for cardioversion
Assessment / Plan
Assessment / Plan
Physical Exam
General: Comfortable, on nasal O2, No Apparent Distress
HEENT: Normocephalic, Moist mucous membranes and Atraumatic
Respiratory: bilateral crackles , not severe
Cardiac: S1/S2, Irregular Rhythm, Murmur and Other (Bilateral 2+ lower extremity pitting edema); No Rub
GI: Soft, Non Tender, Non Distended and Normal Bowel Sounds; No Organomegaly
Rectal: Deferred by Provider
Musculoskeletal: No Clubbing, No Cyanosis and No Edema
Skin: No Rash
Neuro: Awake, Alert, Oriented, AO x 3 and Nonfocal/grossly intact
Psych: calm
# Atrial fibrillation with rapid ventricular response.
Paroxysmal A-fib status post cardioversion 03/23.
� Recently on Tikosyn discontinued 2 weeks prior to presenting
Her heart rate is better controlled, weaned off Cardizem gtt, c/w oral Cardizem
Start on oral Cardizem , short acting for now then hopefully to long acting to know exact dosage
Plan for cardioversion
C/w Amiodarone, c/w BB
C/W Eliquis
# Acute CHF preserved EF in the settings of rapid ventricular rate
Acute pulmonary edema secondary to above.
Better today, she lost weight , 3 Kg since admission
Still with rales. SaO2 at 90 % on RM while resting, back on 2 liters for now
She reports feeling less sob
Increase Lasix to 80 mg IV twice daily.
Most recent echo 02/2024 showed normal LVEF, LVH, mild MR, Mild TR.
Cardiology input appreciated.
#Essential hypertension
#Dyslipidemia
#GERD
#Bilateral carotid artery stenosis greater than 70% left, 50 to 69% right
#Obesity with BMI of 35
# History of amiodarone induced hyperthyroidism.
Most recent and today's TSH within normal limits.
Has been taken off methimazole 4 weeks prior to admission
Total time spent to see the patient, examine the patient on the floor, review data and lab results, discuss the treatment plan with the patient, nursing staff around 55 minutes
Anticipated Discharge: 24 - 48 hours
Subjective/Interval History
-
Date of Service: August 07, 2024
No chest pain
No worsening sob
Objective Data
-
Labs:
Laboratory Results
08/07/24
06:28
Sodium 142
Potassium 4.0
Chloride 104
Carbon Dioxide 28
BUN 21 H
Creatinine 1.0
Glucose 107 H
Calcium 9.9
Vital Signs:
Vital Signs
Temp Pulse Resp BP Pulse Ox
98.1 F 79 18 145/88 97
08/07/24 07:20 08/07/24 07:20 08/07/24 07:20 08/07/24 07:20 08/07/24 07:20
I&O
08/06/24 08/07/24 08/08/24
06:59 06:59 06:59
Intake Total 400 / 400
Output Total 1600 / 1600 625 / 625
Balance -1600 / -1600 -225 / -225
[2024-08-07] MEDS: CARDIZEM 60 MG PO ×4 (09:20→20:59)
[2024-08-07] MEDS: DESENEX/MITRAZOL/ZEASORB 1 APPLIC TOPICAL ×2 (09:20→19:46)
[2024-08-07] MEDS: COLACE 100 MG PO ×2 (09:20→19:42)
[2024-08-07] MEDS: TOPROL XL 50 MG PO ×2 (09:21→19:43)
[2024-08-07] MEDS: PACERONE 200 MG PO ×2 (09:21→19:42)
[2024-08-07] MEDS: ELIQUIS 5 MG PO ×2 (09:21→19:42)
[2024-08-07] MEDS: ZETIA 10 MG PO (09:22)
[2024-08-07] MEDS: THERAGRAN 1 TABLET PO (09:22)
[2024-08-07] MEDS: LASIX 80 MG IV ×2 (09:34→16:28)
[2024-08-07] MEDS: LASIX IV (09:34)
[2024-08-07] MEDS: FLUSH (NSS) 1 FLUSH IV ×2 (09:35→16:28)
--- NOTE | 2024-08-07 11:13 | W.PN.CARDCBS ---
Today's Communication / Plan
-
Remains hypoxic off of oxygen
Increase Lasix to 80 mg IV twice daily
Continue amiodarone with possible cardioversion prior to discharge if remains in A-fib
Will need close follow-up of thyroid function test as an outpatient given prior abnormal TFTs on amiodarone
Impression / Plan
-
Primary Senior Government Program Analyst: Dr. Valera
Assessment:
Presentation with SOB
Paroxysmal atrial fibrillation, now with RVR
History of failure with flecainide, sotalol and most recently Tikosyn
History of amiodarone induced hyperthyroidism
Chronic anticoagulation with Eliquis
Acute on chronic heart failure with preserved EF
Hypertension
Hyperlipidemia
GERD
Bilateral carotid disease, greater than 70% left, 50 to 69% right
Obesity
DNR CODE STATUS
ECHO 03/14/2024: Technically difficult study, preserved EF, mild concentric LVH, MAC, mitral sclerosis, mild MR, aortic sclerosis, no AR, mild TR, PAP 30 to 35 mmHg
Plan:
She remains hypoxic off of oxygen
Her weight remains much higher than on discharge in the spring 2023. Her weight was 208 pounds in February 2024 and is currently 222 pounds.
Will increase Lasix to 80 mg IV twice daily
Rate control is better with the restart of amiodarone
Discussed with daughter on 08/06 who request another attempt at cardioversion
Although the success of cardioversion with short course of amiodarone may not be high we would consider doing it prior to discharge.
It will take at least 1 month to load with amiodarone but reluctant to give high-dose loading given prior abnormal thyroid function test
She will need follow-up of thyroid function test as an outpatient
Progress Note - Senior Government Program Analyst
Subjective
Date of Service: August 07, 2024
No complaints. Pulse ox drops to 89% off of oxygen
Objective
Labs:
08/06/24 04:50
08/07/24 06:28
Labs
Hgb 12.9 g/dL (12.0-16.0) 08/06/24 04:50
Hct 39.4 % (37.0-47.0) 08/06/24 04:50
Plt Count 195 10^3/uL (130-400) 08/06/24 04:50
Sodium 142 mmol/L (135-145) 08/07/24 06:28
Potassium 4.0 mmol/L (3.5-5.1) 08/07/24 06:28
BUN 21 mg/dl (7-17) H 08/07/24 06:28
Creatinine 1.0 mg/dL (0.6-1.0) 08/07/24 06:28
Glucose 107 mg/dl (70-99) H 08/07/24 06:28
Vital Signs and I&O:
Vital Signs
Temp Pulse Resp BP Pulse Ox
98.1 F 79 18 145/88 97
08/07/24 07:20 08/07/24 09:34 08/07/24 07:20 08/07/24 09:34 08/07/24 09:08
Vital Signs
Temp Pulse Resp BP Pulse Ox
98.1 F 79 18 145/88 97
08/07/24 07:20 08/07/24 09:34 08/07/24 07:20 08/07/24 09:34 08/07/24 09:08
Intake & Output
08/05/24 08/06/24 08/07/24 08/08/24
06:59 06:59 06:59 06:59
Intake Total 400 / 400
Output Total 1600 / 1600 625 / 625
Balance -1600 / -1600 -225 / -225
Physical Exam
Physical Exam
General: Well developed, well nourished in NAD.
Neck: Supple, no JVD, HJR, carotids +2 B/L, no bruits bilaterally.
Heart: Non displaced PMI, irregular, no murmurs, No S3, S4, no rubs.
Lungs: Scattered rhonchi
Extremities: No clubbing, cyanosis or edema bilaterally.
Neuro: Grossly nonfocal, awake, alert and oriented x3.
--- NOTE | 2024-08-07 11:15 | PTCARENOTE ---
Per Dr. Bassett pt is to stay on telemetry.
--- NOTE | 2024-08-07 16:18 | PTCARENOTE ---
Pt AAO x3, THOMAS; OOB to chair/ambulates short distance in room with assist x1/walker, kelly well, pt states she feels 'much stronger today'. VSS. Telemetry:A fib to 120's with OOB activity; no c/o palpitations. Maintained on nc 2 lpm- pulse ox 95%,
pt with (+) slight ISSA; denies SOB. Abd obese, soft, kelly PO well. Voiding without difficulty; has (+) stress incont. Resting in bed at present, no c/o. Will continue to monitor.
--- NOTE | 2024-08-07 16:19 | CHAP ---
Ms. Eli welcomed me with a beautiful smile and a warm spirit. She is spiritually strong, and appreciates prayer. Emotional and spiritual support provided.
[2024-08-07] MEDS: KCL 20 MEQ PO (19:42)
--- NOTE | 2024-08-07 19:45 | PTCARENOTE ---
Pt stating, 'I feel like my heart is racing, with chest pressure on and off'. HR 90-120s pt given PO amiodarone and PO metoprolol. House DOMESTIC LAUNDRY WORKER aware- no new orders. Pt states symptoms resolved.
[2024-08-08] VITALS (9 sets, daily range): BP systolic 106–174; BP diastolic 67–105; PULSE 89–128; O2SAT 96–99; BMI 34.6
[2024-08-08 07:26] LABS: Hematocrit 41.5 % (37.0-47.0); Hemoglobin 13.8 g/dL (12.0-16.0); Mean Corp Hgb Conc. 33.3 g/dL (33.0-37.0); Mean Corpuscular Hgb 32.2 pg (27.0-31.0); Mean Platelet Volume 12.6 fL (7.4-10.4); Platelet Count 195 10^3/uL (130-400); Red Blood Cell Count 4.28 10^6/uL (4.20-5.40); Red Cell Dist. Width 12.8 % (11.5-14.5); White Blood Cell Count 7.8 10^3/uL (4.8-10.8)
[2024-08-08 07:30] LABS: Glucose - Point of Care 93 mg/dl (70-99)
[2024-08-08 08:30] LABS: Albumin 3.9 g/dl (3.5-5.0); Blood Urea Nitrogen 22 mg/dl (7-17); Calcium 9.9 mg/dl (8.4-10.2); Carbon Dioxide 30 mmol/L (22-30); Chloride 102 mmol/L (98-107); Estimated Creatinine Clearance 52 ml/min; Glucose 96 mg/dl (70-99); Phosphorus 3.4 mg/dl (2.5-4.5); Potassium 3.9 mmol/L (3.5-5.1); Sodium 142 mmol/L (135-145); eGFR > 60.00
[2024-08-08] MEDS: KCL 20 MEQ PO ×2 (08:44→19:57)
[2024-08-08] MEDS: CARDIZEM 60 MG PO ×4 (08:44→23:11)
[2024-08-08] MEDS: THERAGRAN 1 TABLET PO (08:45)
[2024-08-08] MEDS: ZETIA 10 MG PO (08:45)
[2024-08-08] MEDS: TOPROL XL 50 MG PO ×2 (08:45→19:57)
[2024-08-08] MEDS: PACERONE 200 MG PO ×2 (08:45→19:58)
[2024-08-08] MEDS: ELIQUIS 5 MG PO ×2 (08:45→19:58)
[2024-08-08] MEDS: DESENEX/MITRAZOL/ZEASORB 1 APPLIC TOPICAL ×2 (08:45→19:59)
[2024-08-08] MEDS: COLACE 100 MG PO ×2 (08:45→19:58)
[2024-08-08] MEDS: LASIX 80 MG IV ×2 (08:46→17:04)
--- NOTE | 2024-08-08 10:40 | W.PN.CARDCBS ---
Addendum entered and electronically signed by David Valera MD 08/08/24 15:02:
I saw and examined the patient.
The BATTERY TESTER or PA's note was reviewed and I agree with the note.
Comment: General: Well developed, well nourished in NAD.
Neck: Supple, no JVD, HJR, carotids +2 B/L, no bruits bilaterally.
Heart: Non displaced PMI, Irregular, no murmurs, No S3, S4, no rubs.
Lungs: Scattered rhonchi
Extremities: No clubbing, cyanosis or edema bilaterally.
Neuro: Grossly nonfocal, awake, alert and oriented x3.
She lost 3 pounds overnight. Continue IV Lasix. Will attempt cardioversion on 08/09. Unclear if she will remain in sinus rhythm as recently started amiodarone. Unclear how much of her symptoms are due to A-fib and are likely mostly due to volume
overload. If cardioversion does not work, could consider cardioversion after 1 month of amiodarone. She will need close follow-up of thyroid function test as an outpatient on amiodarone. Updated her son-in-law Dr. Johnson.
Original Note:
Today's Communication / Plan
-
Continue IV diuresis
Replete potassium
Continue amiodarone load
Possible cardioversion 08/09/2024
Impression / Plan
-
Primary Economic Analyst: Dr. Valera
Assessment:
Presentation with SOB 08/05/2024
Paroxysmal atrial fibrillation, now with RVR
History of failure with flecainide, sotalol and most recently Tikosyn
History of amiodarone induced hyperthyroidism
Chronic anticoagulation with Eliquis
Acute on chronic heart failure with preserved EF,, proBNP 4700
Hypertension
Hyperlipidemia
GERD
Bilateral carotid disease, greater than 70% left, 50 to 69% right
Obesity
DNR CODE STATUS
ECHO 03/14/2024: Technically difficult study, preserved EF, mild concentric LVH, MAC, mitral sclerosis, mild MR, aortic sclerosis, no AR, mild TR, PAP 30 to 35 mmHg
Plan:
She remains hypoxic off of oxygen
Her weight remains much higher than on discharge in the spring 2023. Her weight was 208 pounds in February 2024 and is currently 220 pounds.
Increased Lasix to 80 mg IV twice daily 08/07/2024, she lost 3 lbs overnight
Creatinine stable at 0.9
will replete potassium, 3.9
Heart rate at rest improved with resumption of amiodarone. However heart rate still increased with activity. Continue amiodarone load 200 mg twice a day (started 08/05/2024) as well as Toprol 50 mg twice a day and diltiazem for rate control
Discussed with daughter on 08/06 who request another attempt at cardioversion; will add on tentatively for 08/09
Patient reports she has been compliant with taking her Eliquis and has not missed or skipped any doses.
Although the success of cardioversion with short course of amiodarone may not be high we would consider doing it prior to discharge.
It will take at least 1 month to load with amiodarone but reluctant to give high-dose loading given prior abnormal thyroid function test
Currently TSH 2.24 on 08/05/2024. She will need follow-up of thyroid function test as an outpatient with resumption of amiodarone
Progress Note - Economic Analyst
Subjective
Date of Service: August 08, 2024
Patient seen and examined. Patient sitting up in chair now on room air. She reports feeling less short of breath with some improvement of lower extremity edema.
Objective
Labs:
08/08/24 06:43
08/08/24 06:43
Labs
Hgb 13.8 g/dL (12.0-16.0) 08/08/24 06:43
Hct 41.5 % (37.0-47.0) 08/08/24 06:43
Plt Count 195 10^3/uL (130-400) 08/08/24 06:43
Sodium 142 mmol/L (135-145) 08/08/24 06:43
Potassium 3.9 mmol/L (3.5-5.1) 08/08/24 06:43
BUN 22 mg/dl (7-17) H 08/08/24 06:43
Creatinine 0.9 mg/dL (0.6-1.0) 08/08/24 06:43
Glucose 96 mg/dl (70-99) 08/08/24 06:43
Vital Signs and I&O:
Vital Signs
Temp Pulse Resp BP Pulse Ox
98.2 F 100 20 174/105 100
08/08/24 07:20 08/08/24 08:44 08/08/24 07:20 08/08/24 08:44 08/08/24 07:20
Vital Signs
Temp Pulse Resp BP Pulse Ox
98.2 F 100 20 174/105 100
08/08/24 07:20 08/08/24 08:44 08/08/24 07:20 08/08/24 08:44 08/08/24 07:20
Intake & Output
08/06/24 08/07/24 08/08/24 08/09/24
06:59 06:59 06:59 06:59
Intake Total 400 / 400 1280 / 1280
Output Total 1600 / 1600 625 / 625 300 / 300
Balance -1600 / -1600 -225 / -225 980 / 980
Physical Exam
Physical Exam
GEN: No distress, awake, Ox3, sitting in chair
HEENT: supple, anicteric, mmm
LUNGS: Crackles at bilateral bases CTA, no wheezes/rales; on room air
CV: Irregularly irregular, S1/S2, 1/6 syst murmur
ABD: soft, BS+, NT/ND
EXT: +1 bilateral lower extremity edema, no clubbing or cyanosis
NEURO: Gross non-focal
SKIN: No rash, warm, dry,
--- NOTE | 2024-08-08 15:20 | W.PN.HOSP.TC ---
Today's Communication/Plan
-
Continue IV diuresis
Continue rate and rhythm monitoring
For cardioversion in a.m.
Assessment / Plan
Assessment / Plan
IMPRESSION:
Atrial fibrillation with rapid ventricular response.
Acute CHF preserved EF in the settings of rapid ventricular rate
Acute pulmonary edema secondary to above.
Conditions prior to admission:
Paroxysmal A-fib status post cardioversion 03/23.
� Recently on Tikosyn discontinued 2 weeks prior to presenting
Anticoagulation with Eliquis.
CHF preserved EF.
�Echo 03/02/23: EF 65 to 70%, no regional wall motion abnormalities noted, mild concentric LVH, MAC, aortic sclerosis, trace AR, no significant change compared to prior
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
Essential hypertension
Dyslipidemia
GERD
Bilateral carotid artery stenosis greater than 70% left, 50 to 69% right
Obesity with BMI of 35
PLAN:
Atrial fibrillation with rapid ventricular response
Acute CHF preserved EF decompensation in the settings of rapid ventricular rates.
Recently on Tikosyn discontinued 2 weeks prior to presentation. History of amiodarone induced hyperthyroidism.
Initiated on IV Cardizem drip currently at 15 mg an hour
Continue preadmission metoprolol 50 mg twice daily, consider increase dose
Started on Cardizem short acting.
Reinstated on amiodarone.
Plan to attempt DC cardioversion on 08/09. If unsuccessful reattempt as outpatient after amiodarone load.
Given thyroid dysfunction being on amiodarone, patient will need closely follow-up TFTs as outpatient.
Continue anticoagulation with Eliquis
Acute CHF preserved EF with most likely asymmetric mostly on the right pulmonary edema
Weight is up, peripheral edema, elevated pro CHF BNP above the baseline.
Responding to diuresis with weight loss: 103-99 kg
Most recent echo as above
Chest x-ray read with right lower lobe infiltrate
Patient is afebrile with occasional nonproductive cough, normal white count.
Less likely acute infection. Most likely asymmetric pulmonary edema
Status post ceftriaxone/Zithromax while in ED.
Check procalcitonin level. Normal
Hold off on further antibiotics, monitoring closely for any signs of infection
History of amiodarone induced hyperthyroidism.
Most recent and today's TSH within normal limits.
Has been taken off methimazole 4 weeks prior to admission
Anticipated Discharge: 24 - 48 hours
Subjective/Interval History
-
Date of Service: August 08, 2024
Objective Data
-
Labs:
Laboratory Results
08/08/24
06:43
WBC 7.8
Hgb 13.8
Hct 41.5
Plt Count 195
Sodium 142
Potassium 3.9
Chloride 102
Carbon Dioxide 30
BUN 22 H
Creatinine 0.9
Glucose 96
Calcium 9.9
Vital Signs:
Vital Signs
Temp Pulse Resp BP Pulse Ox
98.4 F 97 20 133/69 97
08/08/24 11:05 08/08/24 13:03 08/08/24 11:05 08/08/24 13:03 08/08/24 11:05
I&O
08/07/24 08/08/24 08/09/24
06:59 06:59 06:59
Intake Total 400 / 400 1280 / 1280
Output Total 625 / 625 300 / 300
Balance -225 / -225 980 / 980
Physical Exam
-
General: Well Developed, Well Nourished, No Apparent Distress, Comfortable and Conversant
HEENT: Normocephalic and Atraumatic
Respiratory: Clear to Auscultation and Non Labored Respirations; Negative Accessory Resp Muscle Use
Cardiac: S1/S2 and Irregular Rhythm
GI: Soft and Nontender
Musculoskeletal: Edema, Right Lower Extrem (chronic) and Edema, Left Lower Extrem (chronic)
Neuro: Awake and Alert
Psych: Calm and Intact Judgement/Insight
[2024-08-09] VITALS (9 sets, daily range): BP systolic 113–155; BP diastolic 66–92; BMI 34.6
[2024-08-09 08:56] LABS: Albumin 4.3 g/dl (3.5-5.0); Blood Urea Nitrogen 24 mg/dl (7-17); Calcium 10.2 mg/dl (8.4-10.2); Carbon Dioxide 25 mmol/L (22-30); Chloride 103 mmol/L (98-107); Estimated Creatinine Clearance 52 ml/min; Glucose 98 mg/dl (70-99); Phosphorus 3.2 mg/dl (2.5-4.5); Potassium 4.4 mmol/L (3.5-5.1); Sodium 141 mmol/L (135-145); eGFR > 60.00
[2024-08-09] MEDS: CARDIZEM 60 MG PO ×2 (09:20→15:24)
[2024-08-09] MEDS: ZETIA 10 MG PO (09:21)
[2024-08-09] MEDS: KCL 20 MEQ PO ×2 (09:21→19:44)
[2024-08-09] MEDS: THERAGRAN 1 TABLET PO (09:21)
[2024-08-09] MEDS: PACERONE 200 MG PO ×2 (09:21→19:44)
[2024-08-09] MEDS: ELIQUIS 5 MG PO ×2 (09:21→19:44)
[2024-08-09] MEDS: TOPROL XL 50 MG PO ×2 (09:22→19:44)
[2024-08-09] MEDS: LASIX 80 MG IV ×2 (09:22→16:32)
[2024-08-09] MEDS: DESENEX/MITRAZOL/ZEASORB 1 APPLIC TOPICAL ×2 (09:22→19:44)
[2024-08-09] MEDS: COLACE 100 MG PO ×2 (09:22→19:44)
--- NOTE | 2024-08-09 10:20 | W.PN.CARDCBS ---
Addendum entered and electronically signed by David Valera MD 08/09/24 10:55:
I saw and examined the patient.
The REGISTERED NURSE POST PARTUM or PA's note was reviewed and I agree with the note.
Comment: General: Well developed, well nourished in NAD.
Neck: Supple, no JVD, HJR, carotids +2 B/L, no bruits bilaterally.
Heart: Non displaced PMI, irregular, no murmurs, No S3, S4, no rubs.
Lungs: Scattered rhonchi
Extremities: No clubbing, cyanosis or edema bilaterally.
Neuro: Grossly nonfocal, awake, alert and oriented x3.
She feels okay. Weight seems to have plateaued. on room air at present. For cardioversion later today. Explained risk benefits in detail and agrees to proceed. High risk of recurrent A-fib if cardioversion even works. Patient and family aware
that may need to consider repeat cardioversion after 4 weeks of loading with amiodarone. Unclear how much of her symptoms are due to A-fib and likely will be improved with rate control on amiodarone.
Addendum entered and electronically signed by Lyndsey Michael PA-C 08/09/24 10:52:
.
Original Note:
Today's Communication / Plan
-
cost assess SGLT2 inhibitor
continue IV lasix
for CV today
post CV, transition cardizem sr to cardizem cd
Impression / Plan
-
Primary Construction Plumber: Dr. Vaelra
Assessment:
Presentation with SOB 08/05/2024
Paroxysmal atrial fibrillation, now with RVR
History of failure with flecainide, sotalol and most recently Tikosyn
History of amiodarone induced hyperthyroidism
Chronic anticoagulation with Eliquis
Acute on chronic heart failure with preserved EF,, proBNP 4700
Hypertension
Hyperlipidemia
GERD
Bilateral carotid disease, greater than 70% left, 50 to 69% right
Obesity
DNR CODE STATUS
ECHO 03/14/2024: Technically difficult study, preserved EF, mild concentric LVH, MAC, mitral sclerosis, mild MR, aortic sclerosis, no AR, mild TR, PAP 30 to 35 mmHg
Plan:
-she reports she is diuresing with higher dose IV lasix 80mg BID, however weight remains higher than earlier this year (was 208 pounds 02/2024) and remains with evidence of volume overload on exam. Cr stable. now off supp O2. was on po lasix 40mg
BID prior to admission, likely needs higher dosing for DC
-CHF education
-remains with LE edema. tubigrip stockings ordered
-EF preserved by echo 03/14/24
-will have CM assess cost to patient of jardiance/farxiga.
-remains in afib by review of tele overnight. for CV today. amiodarone which was previously stopped due to amio thyroid toxicity, resumed this admission at 200mg BID after discussion with patient/daughter. continue toprol 50mg BID. also currently on
cardizem sr 60mg QID. will plan to transition to cardizem cd post CV.
-continue eliquis, no missed doses
-Currently TSH 2.24 on 08/05/2024. She will need follow-up of thyroid function test as an outpatient with resumption of amiodarone
Progress Note - Construction Plumber
Subjective
Date of Service: August 09, 2024
Reports breathing improved from admission. States remains with lower extremity edema.
Objective
Labs:
08/08/24 06:43
08/09/24 07:32
Labs
Hgb 13.8 g/dL (12.0-16.0) 08/08/24 06:43
Hct 41.5 % (37.0-47.0) 08/08/24 06:43
Plt Count 195 10^3/uL (130-400) 08/08/24 06:43
Sodium 141 mmol/L (135-145) 08/09/24 07:32
Potassium 4.4 mmol/L (3.5-5.1) 08/09/24 07:32
BUN 24 mg/dl (7-17) H 08/09/24 07:32
Creatinine 0.9 mg/dL (0.6-1.0) 08/09/24 07:32
Glucose 98 mg/dl (70-99) 08/09/24 07:32
Vital Signs and I&O:
Vital Signs
Temp Pulse Resp BP Pulse Ox
98.3 F 113 18 155/89 95
08/09/24 07:15 08/09/24 09:21 08/09/24 07:15 08/09/24 09:21 08/09/24 07:15
Vital Signs
Temp Pulse Resp BP Pulse Ox
98.3 F 113 18 155/89 95
08/09/24 07:15 08/09/24 09:21 08/09/24 07:15 08/09/24 09:21 08/09/24 07:15
Intake & Output
08/07/24 08/08/24 08/09/24 08/10/24
07:59 07:59 07:59 07:59
Intake Total 400 / 400 1280 / 1280 720 / 720
Output Total 625 / 625 300 / 300
Balance -225 / -225 980 / 980 720 / 720
Physical Exam
Physical Exam
GEN: No distress, awake, alert, oriented x3.
HEENT: supple, anicteric, mmm, eomi
LUNGS: Crackles bilateral bases, no wheezes
CV: Irreg, S1/S2, no murmur
ABD: soft, BS+, NT/ND
EXT: No cyanosis, clubbing. 2+ edema of bilateral lower extremity
NEURO: Gross non-focal
SKIN: Warm, pink, dry. No rash
--- NOTE | 2024-08-09 11:53 | PN.CDI ---
CDI
- -
CDI:
Physician Documentation Request
Admit Date: 08/05/24 10:52
Dear Doctor Ashwini,
Patient admitted for atrial fibrillation.
Selected Entries
08/05/24
16:45
Is this a pressure-related injury? [Present on admission Sacrum] Yes
Pressure injury appearance (Stage 1) [Present on admission Sacrum] Non blanchable
red
Pressure injury stage [Present on admission Sacrum] Stage 1
Surrounding Skin - [Present on admission Sacrum] Local erythema
Physician documentation of the type and location of wounds is required for compliant documentation. Based on the above clinical findings and your assessment, please provide the following in your progress note:
1. Location of the ulcer/wound, including laterality.
2. Type (etiology) of ulcer/wound:
- Diabetic ulcer
- Arterial (ischemic) ulcer
- Traumatic wound
- Venous stasis ulcer
- Pressure (decubitus) ulcer
- Non-healing surgical wound
- Other
- Unable to determine
3. For a non-pressure ulcer, please indicate the depth/severity:
- Limited to the breakdown of skin
- With fat layer exposed
- With necrosis of muscle
- With necrosis of bone
- Other
- Unable to determine
4. If a pressure ulcer, please also include the stage* of the ulcer:
- Stage 1 - Skin intact, non-blanchable redness
- Stage 2 - Partial thickness loss of dermis, includes intact or open blister
- Stage 3 - Full thickness tissue not including bone, tendon or muscle
- Stage 4 - Full thickness tissue loss, including exposed bone, tendon or muscle
- Unstageable - Full thickness loss in which the base of the ulcer is covered by slough (yellow, niño, mcnair, green or brown) and/or eschar (niño, brown or black) in the wound bed.
- Unable to determine
Use of terms such as suspected, likely, concern for, or probable (associated with a specific diagnosis that is being evaluated, monitored, or treated as if it exists) are acceptable and can be coded in the inpatient setting, when documented at the
time of discharge.
Thank you,
Laurence Burkett RN, BSN
CDI Specialist
Available via [employer] text
Please use your independent medical judgment in providing your response.
*Source: National Pressure Ulcer Advisory Panel (NPUAP)
--- NOTE | 2024-08-09 12:24 | CM ---
Addendum entered by Yvonne Delgado 08/09/24 12:38:
Request received for pricing of Farxiga and Jardiance.
Farxiga 5mg $129.50 for 30 days, $388.30 for 90 days.
Jardiance 10mg $135.91 for 30 days, $407.54 for 90 days.
TT sent to Lyndsey Michael PA-C with information above.
Original Note:
CM met with Anay at bedside. She lives in independent living at [facility]. She has no steps to enter her apartment and has someone clean her home. Anay has many walkers and cane, shower seat, shower rails, toilet rails. Anay'
daughter lives closeby.
[facility] nurses take her weight to manage her CHF.
PCP Dr. Gerda Garcia
Pharmacy: [facility] on [phone]
Patient has [facility] in past for PT and OT and would like them back. Referral for [facility] made in care port.
Please fax discharge instruction to [facility]) at [phone]
PLAN: home with [facility].
--- NOTE | 2024-08-09 12:26 | W.PN.HOSP.TC ---
Today's Communication/Plan
-
For cardioversion today.
Final cardiovascular/rate rhythm control regimen to be determined post cardioversion.
Respiratory status remained stable while off supplemental oxygen
Weight plateau at 99 kg.
Assessment / Plan
Assessment / Plan
IMPRESSION:
Atrial fibrillation with rapid ventricular response.
Acute CHF preserved EF in the settings of rapid ventricular rate
Acute pulmonary edema secondary to above.
Conditions prior to admission:
Paroxysmal A-fib status post cardioversion 03/23.
� Recently on Tikosyn discontinued 2 weeks prior to presenting
Anticoagulation with Eliquis.
CHF preserved EF.
�Echo 03/02/23: EF 65 to 70%, no regional wall motion abnormalities noted, mild concentric LVH, MAC, aortic sclerosis, trace AR, no significant change compared to prior
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
Essential hypertension
Dyslipidemia
GERD
Bilateral carotid artery stenosis greater than 70% left, 50 to 69% right
Obesity with BMI of 35
PLAN:
Atrial fibrillation with rapid ventricular response
Acute CHF preserved EF decompensation in the settings of rapid ventricular rates.
Recently on Tikosyn discontinued 2 weeks prior to presentation. History of amiodarone induced hyperthyroidism.
Initiated on IV Cardizem drip currently at 15 mg an hour
Continue preadmission metoprolol 50 mg twice daily, consider increase dose
Started on Cardizem short acting.
Reinstated on amiodarone.
Plan to attempt DC cardioversion on 08/09. If unsuccessful reattempt as outpatient after amiodarone load.
Given thyroid dysfunction being on amiodarone, patient will need closely follow-up TFTs as outpatient.
Continue anticoagulation with Eliquis
Acute CHF preserved EF with most likely asymmetric mostly on the right pulmonary edema
Weight is up, peripheral edema, elevated pro CHF BNP above the baseline.
Responding to diuresis with weight loss: 103-99 kg
Most recent echo as above
Chest x-ray read with right lower lobe infiltrate
Patient is afebrile with occasional nonproductive cough, normal white count.
Less likely acute infection. Most likely asymmetric pulmonary edema
Status post ceftriaxone/Zithromax while in ED.
Check procalcitonin level. Normal
Hold off on further antibiotics, monitoring closely for any signs of infection
History of amiodarone induced hyperthyroidism.
Most recent and today's TSH within normal limits.
Has been taken off methimazole 4 weeks prior to admission
Anticipated Discharge: 24 - 48 hours
Subjective/Interval History
-
Date of Service: August 09, 2024
Objective Data
-
Labs:
Laboratory Results
08/09/24
07:32
Sodium 141
Potassium 4.4
Chloride 103
Carbon Dioxide 25
BUN 24 H
Creatinine 0.9
Glucose 98
Calcium 10.2
Vital Signs:
Vital Signs
Temp Pulse Resp BP Pulse Ox
97.7 F 108 20 145/82 94
08/09/24 11:11 08/09/24 11:11 08/09/24 11:11 08/09/24 11:11 08/09/24 11:11
I&O
08/08/24 08/09/24 08/10/24
06:59 06:59 06:59
Intake Total 1280 / 1280 720 / 720
Output Total 300 / 300
Balance 980 / 980 720 / 720
Physical Exam
-
General: Well Developed, Well Nourished, No Apparent Distress, Comfortable and Conversant
HEENT: Normocephalic and Atraumatic
Respiratory: Clear to Auscultation and Non Labored Respirations; Negative Accessory Resp Muscle Use
Cardiac: S1/S2 and Irregular Rhythm
GI: Soft and Nontender
Musculoskeletal: Edema, Right Lower Extrem (chronic) and Edema, Left Lower Extrem (chronic)
Neuro: Awake and Alert
Psych: Calm and Intact Judgement/Insight
--- NOTE | 2024-08-09 12:42 | ITS.CL.CARDI ---
Maxillofacial Prosthetics Dentist - Cardioversion
Cardioversion
Procedure Report:
Date of Procedure:
Procedure: Cardioversion
Indication: Symptomatic atrial fibrillation
Performing Physician: Saulo Salazar MD
Technique: The patient was brought to the holding area. Signed informed consent was obtained. A time out was called and performed. The patient was anesthetized by the anesthesia service. Anticoagulation status was reviewed and appropriate. R2 pads
were placed anteriorly and posteriorly. A 200 J synchronized biphasic shock restored normal sinus rhythm without significant bradycardia. There were no complications.
Conclusion: Uncomplicated cardioversion from atrial fibrillation to sinus rhythm.
Recommendation: Routine post cardioversion care. Continue halfway anticoagulation.
[2024-08-09] MEDS: CARDIZEM PO (15:15)
[2024-08-09] MEDS: CARDIZEM CD 120 MG PO (19:44)
[2024-08-10 03:31] VITALS: BP 157/90
[2024-08-10 06:00] VITALS: BMI 33.9
[2024-08-10 07:10] VITALS: BP 125/83
[2024-08-10 08:16] LABS: Albumin 3.6 g/dl (3.5-5.0); Blood Urea Nitrogen 23 mg/dl (7-17); Calcium 9.9 mg/dl (8.4-10.2); Carbon Dioxide 31 mmol/L (22-30); Chloride 102 mmol/L (98-107); Estimated Creatinine Clearance 52 ml/min; Glucose 95 mg/dl (70-99); Phosphorus 3.5 mg/dl (2.5-4.5); Potassium 3.8 mmol/L (3.5-5.1); Sodium 143 mmol/L (135-145); eGFR > 60.00
[2024-08-10] MEDS: TYLENOL 650 MG PO ×2 (08:40→15:28)
[2024-08-10] MEDS: THERAGRAN 1 TABLET PO (08:41)
[2024-08-10] MEDS: KCL 20 MEQ PO (08:41)
[2024-08-10] MEDS: LASIX 80 MG IV ×2 (08:42→15:28)
[2024-08-10] MEDS: DESENEX/MITRAZOL/ZEASORB 1 APPLIC TOPICAL (08:43)
[2024-08-10] MEDS: COLACE 100 MG PO (08:44)
[2024-08-10] MEDS: CARDIZEM CD 120 MG PO (08:45)
[2024-08-10] MEDS: PACERONE 200 MG PO (08:45)
[2024-08-10] MEDS: ELIQUIS 5 MG PO (08:49)
[2024-08-10] MEDS: ZETIA 10 MG PO (08:50)
[2024-08-10] MEDS: TOPROL XL 50 MG PO (08:50)
[2024-08-10 11:05] VITALS: BP 133/64
--- NOTE | 2024-08-10 12:42 | W.PN.CARDCBS ---
Addendum entered and electronically signed by Tate Regalado DO 08/10/24 15:58:
I saw and examined the patient.
The Credit Analyst's note was reviewed and I agree with the note.
Comment:
Plan:
Transition to Lasix 60 mg p.o. twice daily.
Continue amiodarone 200 mg twice daily for 2 weeks then 200 mg daily.
Remains sinus rhythm on Eliquis.
Check BMP in 1 week
Discussed with patient's son-in-law Dr. Johnson. Patient's exam is chronic with regards to lung bases. Some of her weight gain is secondary to dietary indiscretion.
She remains euvolemic stable for outpatient follow-up.
Discussed with nursing and primary service
Outpatient follow-up Dr. Valera.
Original Note:
Today's Communication / Plan
-
po lasix 60mg BID
amiodarone 200mg BID for 2 weeks then decrease to 200mg daily
toprol, cardizem cd, eliquis
BMP in 1 week
DC to home today
OP cardiac follow up arranged
OP thyroid follow up
Impression / Plan
-
Primary Tomato Grader: Dr. Valera
Assessment:
Presentation with SOB 08/05/2024
Paroxysmal atrial fibrillation, now with RVR
History of failure with flecainide, sotalol and most recently Tikosyn
History of amiodarone induced hyperthyroidism
Chronic anticoagulation with Eliquis
s/p successful CV 08/09/24
Acute on chronic heart failure with preserved EF, proBNP 4700
Hypertension
Hyperlipidemia
GERD
Bilateral carotid disease, greater than 70% left, 50 to 69% right
Obesity
DNR CODE STATUS
ECHO 03/14/2024: Technically difficult study, preserved EF, mild concentric LVH, MAC, mitral sclerosis, mild MR, aortic sclerosis, no AR, mild TR, PAP 30 to 35 mmHg
Plan:
-She continues to diurese, if weight is accurate. reports urine output starting to decrease. Still appears to be above prior dry weight earlier this year. Attending d/w patient's family who feels patient is close to baseline and would like to take
her home today
-will plan for DC on increased dose po lasix 60mg BID (was on 40mg BID prior to admission)
-continue tubigrip stockings
-remains in SR upon review of tele s/p CV 08/09/24
-continue amiodarone 200mg BID for 2 weeks then decrease to 200mg daily. will need OP follow up of thyroid function given prior amio induced thyroid toxicity
-continue toprol and cardizem
-continue eliquis
-consider addition of jardiance/farxiga as OP
-ok for DC today from cardiac standpoint
-BMP in 1 week
-OP cardiac follow up arranged
-d/w nursing, hospitalist
Progress Note - Tomato Grader
Subjective
Date of Service: August 10, 2024
feeling well. eager for DC
Objective
Labs:
08/08/24 06:43
08/10/24 06:49
Labs
Hgb 13.8 g/dL (12.0-16.0) 08/08/24 06:43
Hct 41.5 % (37.0-47.0) 08/08/24 06:43
Plt Count 195 10^3/uL (130-400) 08/08/24 06:43
Sodium 143 mmol/L (135-145) 08/10/24 06:49
Potassium 3.8 mmol/L (3.5-5.1) 08/10/24 06:49
BUN 23 mg/dl (7-17) H 08/10/24 06:49
Creatinine 0.9 mg/dL (0.6-1.0) 08/10/24 06:49
Glucose 95 mg/dl (70-99) 08/10/24 06:49
Vital Signs and I&O:
Vital Signs
Temp Pulse Resp BP Pulse Ox
97.5 F 65 20 133/64 97
08/10/24 11:05 08/10/24 11:05 08/10/24 11:05 08/10/24 11:05 08/10/24 11:05
Vital Signs
Temp Pulse Resp BP Pulse Ox
97.5 F 65 20 133/64 97
08/10/24 11:05 08/10/24 11:05 08/10/24 11:05 08/10/24 11:05 08/10/24 11:05
Intake & Output
08/08/24 08/09/24 08/10/24 08/11/24
07:59 07:59 07:59 07:59
Intake Total 1280 / 1280 720 / 720 1080 / 1080
Output Total 300 / 300 200 / 200
Balance 980 / 980 720 / 720 880 / 880
Physical Exam
Physical Exam
GEN: No distress, awake, alert, oriented x3. sitting in chair
HEENT: supple, anicteric, mmm, eomi
LUNGS: Crackles bilateral bases, no wheezes
CV: Reg, S1/S2, no murmur
ABD: soft, BS+, NT/ND
EXT: No cyanosis, clubbing. 1+ edema of bilateral lower extremity with tubigrip stockings in place B/L
NEURO: Gross non-focal
SKIN: Warm, pink, dry. No rash
[2024-08-10 12:44] VITALS: PULSE 65
[2024-08-10 15:00] VITALS: BP 104/71
--- NOTE | 2024-08-10 15:43 | W.DS.TRANS ---
DC Summary - Lead Generation Specialist
-
Discharge Instructions:
Sleep Apnea Risk Low
Discharge Diagnosis/Procedures Acute CHF
Diet 2 Gram Sodium,Restrict fluids to 48 oz
Activity As tolerated
Driving Restrictions As prior to admission
Blood Work BMP in 1 week, Thyroid function tests in 2-3
weeks
Other Services VN,PT
Specialty Instructions Weigh Daily
Instructions: *DCA Heart Failure Instructions
Stand-Alone Forms:
Changes to Home Medications: Yes
Discharge Medications:
DC Medications w/original date entered in [facility]
ezetimibe 10 mg tablet 10 mg PO DAILY High Cholesterol 12/12/21
acetaminophen 650 mg tablet,extended release (Tylenol 8 Hour) 1,300 mg PO BID pain 03/12/24
apixaban 5 mg tablet (Eliquis) 5 mg PO BID Blood Clot Prevention/Tx 08/05/24
docusate sodium 100 mg capsule (Colace) 100 mg PO BID constipation 08/05/24
ptdjdbezfut-aolghdlep-Sp-amur 375 mg-150 mg-150 mg-125 mg tablet 1 tab PO DAILY supplement 08/05/24
metoprolol succinate 50 mg tablet,extended release 24 hr 50 mg PO BID Blood Pressure 08/05/24
therapeutic multivitamin 1 tab PO DAILY Supplement 08/05/24
amiodarone 200 mg tablet 200 mg PO BID #100 tabs 08/10/24
diltiazem HCl 120 mg capsule,extended release 24 hr 120 mg PO BID #60 caps 08/10/24
furosemide 40 mg tablet 60 mg (1.5 x 40 mg) PO BID Fluid Retention/Swelling #60 tabs 08/10/24
potassium chloride 20 mEq tablet,extended release(part/cryst) 20 meq PO BID #60 tabs 08/10/24
Home Medication Changes
Amiodarone, Diltazem started.
Lasix increased with addition of KCL
Pending Results: No
--- NOTE | 2024-08-11 08:59 | W.HF.CON ---
Heart Failure
- LV Function
Left ventricular function study result: LV Ejection fraction >40%
- ARNI
Patient already on ARNI: No
Heart Failure ARNI Not Indicated: LV Ejection Fraction >/= 40%
- ACEI/ARB
Patient already on ACEI/ARB: No
Heart Failure ACEI/ARB Not Indicated: LV Ejection Fraction > 40%
- Beta Ken
Patient already on Evidence Based Beta Ken: Yes
- Mineralocorticord Receptor Antagonist
Patient already on MRA: No
Heart Failure MRA Not Indicated: LV Ejection Fraction > 40%
- SGLT-2 Inhibitor
Patient already on SGLT-2 Inhibitor: No
Heart Failure SGLT-2 Inhibitor Not Indicated: LV Ejection Fraction >40%
- Afib Anticoagulation
Patient already on Anticoagulation for Afib: Yes
- NYHA CHF Classification
NYHA CHF Classification Level: Class III - Symptoms w/ min exertion, interferes w/ nml daily activity
- ACC/AHA Stage
ACC/AHA Stage: Stage C: Symptomatic Heart Failure
== END 2024-08-10 16:37 | disposition home health service (06) | DRG 291 ==
LOC: 4 EAST ACU 10:52
PROVIDERS: Internal Medicine; Internal Medicine Cardiovascular Disease; ADMITTING PHYSICIAN Internal Medicine; CONSULT PHYSICIAN Internal Medicine Cardiovascular Disease; EMERGENCY PHYSICIAN Student in an Organized Health Care Education/Training Program; FAMILY PHYSICIAN Student in an Organized Health Care Education/Training Program
PROC: 5A2204Z Restoration of Cardiac Rhythm, Single (ICD-10-PCS; 2024-08-09)
DX: I11.0 Hypertensive heart disease with heart failure (principal); I50.33 Acute on chronic diastolic (congestive) heart failure; I48.0 Paroxysmal atrial fibrillation; E05.80 Other thyrotoxicosis without thyrotoxic crisis or storm; T46.2X5A Adverse effect of other antidysrhythmic drugs, initial encounter; Z66 Do not resuscitate; E78.00 Pure hypercholesterolemia, unspecified; I65.23 Occlusion and stenosis of bilateral carotid arteries; K59.00 Constipation, unspecified; K21.9 Gastro-esophageal reflux disease without esophagitis; I08.3 Combined rheumatic disorders of mitral, aortic and tricuspid valves; Z79.899 Other long term (current) drug therapy; L89.151 Pressure ulcer of sacral region, stage 1; R09.02 Hypoxemia; E66.9 Obesity, unspecified; Z68.35 Body mass index [BMI] 35.0-35.9, adult; Z79.01 Long term (current) use of anticoagulants
CPT/HCPCS: 71046; 80048; 80053; 80069; 82962; 83735; 83880; 84145; 84443; 85025; 85027; 92960; 93005; 96374; 96375; 97116; 97162; 97166; 97530; 97535; 99291